=== PATIENT | female | born 1940 | race Caucasian/White ===

== ENCOUNTER 2017-02-21 08:14 | Inpatient (IN) | payer MEDICARE, BC ==
[~2017-02-21] VITALS: Ht 157.5 cm; Wt 43.6 kg
[~2017-02-21 08:14] MED LIST changes: -FURO20TA19 PO
--- NOTE | 2017-02-21 08:29 | ER Report ---
History and Physical Time Seen By MD: 08:21 Hx. of Stated Complaint: CP, SOB HPI/ROS CHIEF COMPLAINT: chest pressure, shortness of breath, abdominal pain HISTORY OF PRESENT ILLNESS: This is a 76 year old female. She started to have severe chest pressure this morning with associated shortness of breath. Has had cough from recent pneumonia, but this has been improving. Recently discharged on the from hospital. New onset atrial fibrillation, on increased does of Coreg and Amiodarone. Also on Xarelto for this. Had elevated troponin during hospitalization. Since home, has been doing well. [place] well last night but did have some increased shortness of breath and increased from her usual 3 liters up to 4 liters No fevers noted. Has abdominal pain, diffuse, but worse in the suprapubic area. No diarrhea. No vomiting. No problem with urination. Chest pressure is now gone and no longer feeling as short of breath. On her usual 3 liters of oxygen by nasal canula at this time. Allergies: Coded Allergies: codeine (Verified Allergy, Intermediate, SWOLLEN EYES, 02/12/17) morphine (Verified Allergy, Intermediate, SWOLLEN EYES, 02/12/17) Home Meds Active Scripts Rivaroxaban 15 Mg (XARELTO 15 MG) 15 Mg Tablet, 15 MG PO QDAY, #30 TAB Prov:CHRISTIAN LECHUGA DO 02/19/17 Amiodarone Hcl (PACERONE) 200 Mg Tablet, 200 MG PO BID, #14 TAB Prov:CHRISTIAN LECHUGA DO 02/19/17 Levalbuterol Tartrate (XOPENEX HFA) 15 Gm Hfa.aer.ad, 2 PUFF IH QID Y for SHORTNESS OF BREATH, #1 INHALER Prov:CHRISTIAN LECHUGA DO 02/19/17 Prednisone 10 Mg Tab (PREDNISONE 10 MG TAB) 10 Mg Tablet, 10 MG PO QDAY, #30 TAB Prov:CHRISTIAN LECHUGA DO 02/19/17 Carvedilol (CARVEDILOL) 6.25 Mg Tab, 3 TAB PO BID, #120 TAB Prov:CHRISTIAN LECHUGA DO 02/19/17 Bupropion Hcl (BUPROPION XL) 300 Mg Tab.er.24h, 300 MG PO QDAY, #30 TAB Prov:CHRISTIAN LECHUGA DO 02/19/17 Reported Medications Mirtazapine (MIRTAZAPINE) 7.5 Mg Tablet, 7.5 MG PO QHS 08/02/16 Discontinued Reported Medications Prednisone 10 Mg Tab (PREDNISONE 10 MG TAB) 10 Mg Tablet, 7.5 MG PO QDAY, TAB 02/12/17 Hydroxyzine Pamoate (HYDROXYZINE PAMOATE) 25 Mg Capsule, 25 MG PO PRN, CAPSULE 02/12/17 Albuterol Sulfate (VENTOLIN HFA) 18 Gm Inh, 1-2 PUFF INH 3-4XD, INH 01/03/17 Bupropion Hcl (WELLBUTRIN XL) 150 Mg Tab.er.24h, 450 MG PO QDAY, TAB 10/23/16 Losartan Potassium (LOSARTAN POTASSIUM) 50 Mg Tablet, 50 MG PO BID 10/23/16 Carvedilol (CARVEDILOL) 6.25 Mg Tab, 6.25 MG PO BID, TAB x 30 days 10/22/16 Vilazodone Hydrochloride (VIIBRYD) 20 Mg Tablet, 30 MG PO QDAY 08/02/16 Quetiapine Fumarate (SEROQUEL) 25 Mg Tablet, 12.5 MG PO HS 08/02/16 Discontinued Scripts Tramadol Hcl (TRAMADOL HCL) 50 Mg Tablet, 1 TAB PO PRN Y for PAIN, #30 TAB Prov:LAURITA MCDOWELL MD 01/13/17 Reviewed Nurses Notes: Yes Hx Smoking: Yes (10 TO 15 CIGARETTES PER DAY FOR 40 YEARS) Smoking Status: Current: Every Day Smoker Exposure to Second Hand Smoke?: No Hx Substance Use Disorder: No Hx Alcohol Use: No Constitutional Vital Sign - Last 24 Hours 02/21/17 02/21/17 02/21/17 02/21/17 08:15 08:15 08:30 09:00 Temp 98.7 Pulse 94 88 86 Resp 24 22 16 B/P (MAP) 172/85 158/80 (106) 166/84 (111) Pulse Ox 92 91 100 O2 Delivery Room Air O2 Flow Rate 3.0 02/21/17 02/21/17 02/21/17 09:30 10:00 10:30 Pulse 82 81 Resp 20 13 B/P (MAP) 164/77 (106) 170/87 (114) 160/81 (107) Pulse Ox 92 93 Physical Exam General Appearance: The patient is alert. No acute distress at this time. Eyes: Pupils are equal, round. No pallor, injection or icterus. ENT: Mucous membranes are moist. Normal oral mucosa. Posterior oropharynx is normal. Neck: Supple and non tender. Respiratory: Lungs diminished at the based with mild expiratory wheezing. No rales or rhonchi noted. Some increased accessory muscle use with breathing. Cardiovascular: Regular rate and rhythm. 2/3 systolic murmur. Normal capillary refill. 1+ edema bilateral ankles. Gastrointestinal: Abdomen is soft. Diffuse discomfort with palpation, worse in suprapubic area. Nondistended. No rebound or guarding. Normal active bowel sounds. No costovertebral angle tenderness with percussion. Neurological: Alert and oriented x3. Generalized weakness, but no focal neurologic deficits. Skin: Warm and dry. Musculoskeletal: Extremities are nontender. No tenderness in palpation of the cervical, thoracic and lumbar spine. DIFFERENTIAL DIAGNOSIS: After history and physical exam, differential diagnosis was considered for a female with chest pressure, shortness of breath and abdominal pain, likely multifactorial. Will look for causes of shortness of breath and chest pain including but not limited to myocardial ischemia, pulmonary embolus, chest wall pain, pleural inflammation and pulmonary infectious causes and for causes of abdominal pain including but not limited to gastroenteritis and urinary tract infection. Medical Decision Making Data Points Result Diagram: 02/21/17 0814 02/21/17 0902 Laboratory Hematology Test 02/21/17 08:14 02/21/17 08:56 02/21/17 09:02 02/21/17 11:13 Red Blood Count 3.20 M/uL (4.17-5.56) Mean Corpuscular Volume 96.5 fL (80.0-96.0) Mean Corpuscular Hemoglobin 31.2 pg (26.0-33.0) Mean Corpuscular Hemoglobin Concent 32.3 g/dL (32.0-36.0) Red Cell Distribution Width 14.1 % (11.5-14.5) Mean Platelet Volume 7.2 fL (7.2-11.1) Neutrophils (%) (Auto) 77.8 % (39.4-72.5) Lymphocytes (%) (Auto) 15.5 % (17.6-49.6) Monocytes (%) (Auto) 5.2 % (4.1-12.4) Eosinophils (%) (Auto) 0.7 % (0.4-6.7) Basophils (%) (Auto) 0.8 % (0.3-1.4) Nucleated RBC Relative Count (auto) 0.1 /100WBC Neutrophils # (Auto) 13.3 K/uL (2.0-7.4) Lymphocytes # (Auto) 2.7 K/uL (1.3-3.6) Monocytes # (Auto) 0.9 K/uL (0.3-1.0) Eosinophils # (Auto) 0.1 K/uL (0.0-0.5) Basophils # (Auto) 0.1 K/uL (0.0-0.1) Nucleated RBC Absolute Count (auto) 0.03 K/uL Peripheral Blood Smear Yes Y/N B-Type Natriuretic Peptide 1660 pg/ml (0-100) Sodium Level 141 mmol/L (137-145) Potassium Level 4.4 mmol/L (3.5-5.0) Chloride Level 99 mmol/L (98-107) Carbon Dioxide Level 35 mmol/L (22-31) Blood Urea Nitrogen 20 mg/dl (7-18) Creatinine 0.60 mg/dl (0.52-1.04) Glomerular Filtration Rate Calc > 60.0 Random Glucose 133 mg/dl (75-110) Lactate 1.0 mmol/L (0.7-2.1) Calcium Level 8.0 mg/dl (8.4-10.2) Total Bilirubin 0.4 mg/dl (0.2-1.3) Aspartate Amino Transf (AST/SGOT) 36 U/L (0-35) Alanine Aminotransferase (ALT/SGPT) 57 U/L (0-56) Alkaline Phosphatase 62 U/L (0-126) Troponin I 0.033 ng/ml C-Reactive Protein 1.2 mg/dl (<1.0) Total Protein 6.0 gm/dl (6.3-8.2) Albumin 3.1 g/dl (3.5-5.0) Amylase Level 82 U/L (0-110) Lipase 68 U/L (23-300) Urine Color Yellow Urine Clarity Clear Urine pH 5.0 pH (4.8-9.5) Urine Specific [place] 1.030 Urine Protein Negative mg/dL (NEGATIVE) Urine Glucose (UA) Negative mg/dL (NEGATIVE) Urine Ketones Negative mg/dL (NEGATIVE) Urine Blood Negative (NEGATIVE) Urine Nitrite Negative (NEGATIVE) Urine Bilirubin Negative (NEGATIVE) Urine Urobilinogen Negative mg/dL (0.2-1.9) Urine Leukocyte Esterase Negative (NEGATIVE) Urine RBC None /HPF (0-2/HPF) Urine WBC 2 /HPF (0-5/HPF) Urine Squamous Epithelial Cells Few /LPF (</=FEW) Urine Bacteria Negative /HPF (NONE-FEW) Urine Hyaline Casts Few /LPF (NONE-FEW) Urine Mucus Few /HPF (NONE-FEW) Chemistry Test 02/21/17 08:14 02/21/17 08:56 02/21/17 09:02 02/21/17 11:13 White Blood Count 17.2 k/uL (4.5-11.0) Red Blood Count 3.20 M/uL (4.17-5.56) Hemoglobin 10.0 g/dL (12.0-16.0) Hematocrit 30.8 % (34.0-47.0) Mean Corpuscular Volume 96.5 fL (80.0-96.0) Mean Corpuscular Hemoglobin 31.2 pg (26.0-33.0) Mean Corpuscular Hemoglobin Concent 32.3 g/dL (32.0-36.0) Red Cell Distribution Width 14.1 % (11.5-14.5) Platelet Count 560 K/uL (150-450) Mean Platelet Volume 7.2 fL (7.2-11.1) Neutrophils (%) (Auto) 77.8 % (39.4-72.5) Lymphocytes (%) (Auto) 15.5 % (17.6-49.6) Monocytes (%) (Auto) 5.2 % (4.1-12.4) Eosinophils (%) (Auto) 0.7 % (0.4-6.7) Basophils (%) (Auto) 0.8 % (0.3-1.4) Nucleated RBC Relative Count (auto) 0.1 /100WBC Neutrophils # (Auto) 13.3 K/uL (2.0-7.4) Lymphocytes # (Auto) 2.7 K/uL (1.3-3.6) Monocytes # (Auto) 0.9 K/uL (0.3-1.0) Eosinophils # (Auto) 0.1 K/uL (0.0-0.5) Basophils # (Auto) 0.1 K/uL (0.0-0.1) Nucleated RBC Absolute Count (auto) 0.03 K/uL Peripheral Blood Smear Yes Y/N B-Type Natriuretic Peptide 1660 pg/ml (0-100) Glomerular Filtration Rate Calc > 60.0 Lactate 1.0 mmol/L (0.7-2.1) Calcium Level 8.0 mg/dl (8.4-10.2) Total Bilirubin 0.4 mg/dl (0.2-1.3) Aspartate Amino Transf (AST/SGOT) 36 U/L (0-35) Alanine Aminotransferase (ALT/SGPT) 57 U/L (0-56) Alkaline Phosphatase 62 U/L (0-126) Troponin I 0.033 ng/ml C-Reactive Protein 1.2 mg/dl (<1.0) Total Protein 6.0 gm/dl (6.3-8.2) Albumin 3.1 g/dl (3.5-5.0) Amylase Level 82 U/L (0-110) Lipase 68 U/L (23-300) Urine Color Yellow Urine Clarity Clear Urine pH 5.0 pH (4.8-9.5) Urine Specific [place] 1.030 Urine Protein Negative mg/dL (NEGATIVE) Urine Glucose (UA) Negative mg/dL (NEGATIVE) Urine Ketones Negative mg/dL (NEGATIVE) Urine Blood Negative (NEGATIVE) Urine Nitrite Negative (NEGATIVE) Urine Bilirubin Negative (NEGATIVE) Urine Urobilinogen Negative mg/dL (0.2-1.9) Urine Leukocyte Esterase Negative (NEGATIVE) Urine RBC None /HPF (0-2/HPF) Urine WBC 2 /HPF (0-5/HPF) Urine Squamous Epithelial Cells Few /LPF (</=FEW) Urine Bacteria Negative /HPF (NONE-FEW) Urine Hyaline Casts Few /LPF (NONE-FEW) Urine Mucus Few /HPF (NONE-FEW) Urinalysis Test 02/21/17 11:13 Urine Color Yellow Urine Clarity Clear Urine pH 5.0 pH (4.8-9.5) Urine Specific [place] 1.030 Urine Protein Negative mg/dL (NEGATIVE) Urine Glucose (UA) Negative mg/dL (NEGATIVE) Urine Ketones Negative mg/dL (NEGATIVE) Urine Blood Negative (NEGATIVE) Urine Nitrite Negative (NEGATIVE) Urine Bilirubin Negative (NEGATIVE) Urine Urobilinogen Negative mg/dL (0.2-1.9) Urine Leukocyte Esterase Negative (NEGATIVE) Urine RBC None /HPF (0-2/HPF) Urine WBC 2 /HPF (0-5/HPF) Urine Squamous Epithelial Cells Few /LPF (</=FEW) Urine Bacteria Negative /HPF (NONE-FEW) Urine Hyaline Casts Few /LPF (NONE-FEW) Urine Mucus Few /HPF (NONE-FEW) EKG/Imaging EKG Interpretation 12 lead EKG: Rhythm: normal sinus rhythm, rate 92 QRS: Left bundle branch block ST segments: non-specific 12 lead EKG: at 11:38 Rhythm: Atrial fibrillation with rapid rate of 124 QRS: Left bundle branch block ST segments: non-specific Imaging Exam: ACUTE ABDOMEN SERIES 3 VIEW Indication: chest pain, short of breath, abdominal pain, RAD Comparison: Chest x-ray 02/14/2017 Findings: Single view of the chest shows prominent cardiac silhouette. Coarse interstitial changes are present throughout both lungs with bibasilar atelectasis versus possible infiltrate present. There are small bilateral pleural effusions noted. The abdomen shows a nonobstructive bowel gas pattern present. No abnormal masses or calcifications are identified. IMPRESSION: 1. Bibasilar atelectasis versus infiltrate with small pleural effusions superimposed upon chronic interstitial changes 2. Nonobstructive bowel gas pattern Report Dictated By: Jordan Olmedo at 02/21/2017 9:09 AM CTA CHEST WW/O CNTR (PULM ANG) HISTORY: chest pain, shortness of breath ADDITIONAL HISTORY: None. TECHNIQUE: CTA chest with intravenous contrast. Axial imaging acquired following administration of IV contrast timed for maximum opacification of the pulmonary arterial vasculature. Slab 3-D MIP reconstructed images were also created for further evaluation and interpretation. Reconstruction of the source data set includes multiplanar 2-D in the sagittal and coronal planes and 3-D reconstructed coronal slab MIP series. 3-D images were created by the technologist. Dose Lowering Technique One of the following dose optimization techniques was utilized in the performance of this exam: Automated exposure control; adjustment of the mA and/ or kV according to the patient's size; or use of an iterative reconstruction technique. Specific details can be referenced in the facility's radiology CT exam operational policy. CONTRAST: 75 mL Isovue-370 COMPARISON: August 02, 2016 FINDINGS: Lungs/pleura: Again noted is severe diffuse centrilobular emphysema. There has been development of moderate bilateral posterior layering pleural effusions and a moderate amount of airspace consolidation in the lower lobes. Mild secretions seen in the right main bronchus and right lower lobe bronchioles Heart/vessels: Negative. There are no filling defects seen in the pulmonary arteries worrisome for a pulmonary embolus.. There are mild to moderate vascular callus occasions in the thoracic aorta and branch vessels including the coronary arteries Mediastinum/lymph nodes: Negative. Visualized upper abdomen: Please see today's CT of abdomen pelvis dictation Bones/soft tissues: No aggressive appearing bone lesion seen. Diffuse anasarca. Additional findings: None IMPRESSION: No evidence of pulmonary emboli. Severe diffuse centrilobular emphysema Moderate bilateral posterior layering pleural effusions with a moderate amount of airspace consolidation in the lower lobes consistent with infiltrates and/or atelectasis. Mild secretions seen in the right main bronchus and right lower lobe bronchioles Report Dictated By: Ninfa Moya MD at 02/21/2017 11:26 AM ABDOMEN/PELVIS WITH CONTRAST HISTORY: abdominal pain TECHNIQUE: Following administration of IV contrast contiguous axial images acquired through the abdomen/pelvis. Coronal and sagittal reformatting also performed. Dose Lowering Technique One of the following dose optimization techniques was utilized in the performance of this exam: Automated exposure control; adjustment of the mA and/ or kV according to the patient's size; or use of an iterative reconstruction technique. Specific details can be referenced in the facility's radiology CT exam operational policy. CONTRAST: 75 mL Isovue-370 COMPARISON: August 02, 2016 FINDINGS: Visualized lung bases: Severe centrilobular emphysema again noted. There are moderate bilateral posterior layering pleural effusions and moderate airspace consolidation in the visualized lower lobes . Hepatobiliary: There are postsurgical changes from a cholecystectomy with intra and extrahepatic biliary ductal dilatation although appears similar to the prior study. Tiny scattered peripheral hypodensities are again seen in the liver that appear similar to the prior study Spleen: Negative. Adrenals: Negative. Pancreas: Negative. Kidneys ureters or bladder: Cortical hypodensities are seen in both kidneys. The largest appear to represent cysts. The smaller ones are too small to characterize by by CT although statistically represent cysts no evidence of hydronephrosis or hydroureter . There is a small amount of air in the urinary bladder. May be related to recent catheterization although clinical correlation needed Genitalia: Hysterectomy GI: Diverticulosis of the left-sided colon although no CT evidence of acute diverticulitis. Vessels/spaces/nodes: There are moderate vascular calcifications present. There are pelvic varicosities on the left Bones/soft tissues: There is diffuse anasarca. Degenerative listhesis of L4 with respect L5 similar to the prior examination and to lesser extent L2 with respect L3. Additional findings: None pertinent. IMPRESSION: Severe centrilobular emphysema Moderate bilateral posterior layering pleural effusions with moderate airspace consolidation in the visualized lower lobes consistent with infiltrates and/or atelectasis Postsurgical changes from a cholecystectomy with intra and Ductal dilatation similar to the prior study Tiny scattered peripheral hypodensities in the liver appears some are to the prior study Small amount of air seen in the urinary bladder which may be related to catheterization although clinical correlation needed Diverticulosis left-sided colon although no CT evidence of acute diverticulitis Diffuse anasarca Report Dictated By: Ninfa Moya MD at 02/21/2017 11:06 AM ED Course/Re-evaluation Clinical Indication for ER IV: IV Access ED Course Initial evaluation showed that the patient would become very hypoxic even with light activity and despite being up to 4 or 5 liters of oxygen. She is very weak even with transfers such as from bed to commode. Labs show elevated white blood cell count with shift, but lactate is normal and no sign of infection unless in the atelectatic bases on imaging. Now with effusions on chest x-ray and on CT scan. No pulmonary embolism notes. Initial EKG is sinus with a good rate. Urinalysis does not show infection. BNP is elevated at 1666. Troponin is 0.033, which appears likely to be coming down from previous elevations, but could represent demand ischemia. Later, she is unchanged except for that she has now gone into atrial fibrillation with a rapid rate. She has not had any of her regular morning medications. I discussed the case with Dr. Love, who accepted the patient for admission to the hospital for heart failure. I also discussed the case with Dr. Rivera, who is here at the visiting cardiology offices and was supposed to see her this morning. He agreed with the plan for hospitalization and diuresis. Decision to Disposition Date: Feb 21, 2017 Decision to Disposition Time: 12:07 Depart Departure Latest Vital Signs Vital Signs Date Time Temp Pulse Resp B/P (MAP) Pulse Ox O2 Delivery O2 Flow Rate FiO2 02/21/17 10:30 160/81 (107) 02/21/17 10:00 81 13 93 02/21/17 08:15 3.0 02/21/17 08:15 98.7 Room Air Core Temperature (Celsius): 37.2 Impression: Primary Impression: Congestive heart failure Condition: Condition Unchanged Disposition: Admitted from ER Referrals: FEMI CUMMINGS DO (PCP) Problem Qualifiers Primary Impression: Congestive heart failure Congestive heart failure type: unspecified congestive heart failure type Congestive heart failure chronicity: acute on chronic Qualified Codes: I50.9 - Heart failure, unspecified JANNY MARSHALL MD Feb 21, 2017 08:29
[2017-02-21 08:42] LABS: PLATELET COUNT, AUTOMATED 560 K/uL (150-450)
--- NOTE | 2017-02-21 08:50 | EKG ---
FACILITY: [facility] PATIENT NAME: TAYLOR WASHINGTON : [id number] MR: [id number] V: [id number] EXAM DATE: ORDERING PHYSICIAN: JANNY MARSHALL TECHNOLOGIST: Test Reason : Blood Pressure : / mmHG Vent. Rate : 092 BPM Atrial Rate : 092 BPM P-R Int : 152 ms QRS Dur : 126 ms QT Int : 382 ms P-R-T Axes : 074 -03 113 degrees QTc Int : 472 ms Sinus rhythm Left bundle branch block Diffuse ST-T changes consistent with LBBB Abnormal ECG Confirmed by FALLON BAXTER ([id number]) on 02/21/2017 3:13:33 PM Referred By: Confirmed By:FALLON BAXTER
--- NOTE | 2017-02-21 09:18 | RADIOLOGY IMAGING REPORT ---
FACILITY: [facility] PATIENT NAME: Chey Calderón : 1940 MR: [id number] V: [id number] EXAM DATE: ORDERING PHYSICIAN: JANNY MARSHALL TECHNOLOGIST: Location: [facility] Patient: Chey Calderón : 1940 Visit/Account:[id number] Date of Sevice: 02/21/2017 Exam: ACUTE ABDOMEN SERIES 3 VIEW Indication: chest pain, short of breath, abdominal pain, RAD Comparison: Chest x-ray 02/14/2017 Findings: Single view of the chest shows prominent cardiac silhouette. Coarse interstitial changes a re present throughout both lungs with bibasilar atelectasis versus possible infiltrate present. Ther e are small bilateral pleural effusions noted. The abdomen shows a nonobstructive bowel gas pattern present. No abnormal masses or calcifications a re identified. IMPRESSION: 1. Bibasilar atelectasis versus infiltrate with small pleural effusions superimposed upon chronic in terstitial changes 2. Nonobstructive bowel gas pattern Report Dictated By: Jordan Olmedo at 02/21/2017 9:09 AM Report E-Signed By: Jordan Olmedo at 02/21/2017 9:12 AM WSN:ASIF
[2017-02-21] MEDS ORDERED: NS 0.9% 50 ML VIAL 100 ML ONE (10:05)
[2017-02-21] MEDS ORDERED: IOPAMIDOL 76% 75 ML INFUS BTL 75 ML ONE (10:05)
--- NOTE | 2017-02-21 11:30 | RADIOLOGY IMAGING REPORT ---
FACILITY: [facility] PATIENT NAME: Chey Calderón : 1940 MR: [id number] V: [id number] EXAM DATE: ORDERING PHYSICIAN: JANNY MARSHALL TECHNOLOGIST: Location: [facility] [place], [place] Patient: Chey Calderón : 1940 Visit/Account:[id number] Date of Sevice: 02/21/2017 ABDOMEN/PELVIS WITH CONTRAST HISTORY: abdominal pain TECHNIQUE: Following administration of IV contrast contiguous axial images acquired through the abdom en/pelvis. Coronal and sagittal reformatting also performed. Dose Lowering Technique One of the following dose optimization techniques was utilized in the performance of this exam: Autom ated exposure control; adjustment of the mA and/or kV according to the patient's size; or use of an i terative reconstruction technique. Specific details can be referenced in the facility's radiology C T exam operational policy. CONTRAST: 75 mL Isovue-370 COMPARISON: August 02, 2016 FINDINGS: Visualized lung bases: Severe centrilobular emphysema again noted. There are moderate bilateral pos terior layering pleural effusions and moderate airspace consolidation in the visualized lower lobes . Hepatobiliary: There are postsurgical changes from a cholecystectomy with intra and extrahepatic bambi iary ductal dilatation although appears similar to the prior study. Tiny scattered peripheral hypode nsities are again seen in the liver that appear similar to the prior study Spleen: Negative. Adrenals: Negative. Pancreas: Negative. Kidneys ureters or bladder: Cortical hypodensities are seen in both kidneys. The largest appear to r epresent cysts. The smaller ones are too small to characterize by by CT although statistically repre sent cysts no evidence of hydronephrosis or hydroureter . There is a small amount of air in the uri nary bladder. May be related to recent catheterization although clinical correlation needed Genitalia: Hysterectomy GI: Diverticulosis of the left-sided colon although no CT evidence of acute diverticulitis. Vessels/spaces/nodes: There are moderate vascular calcifications present. There are pelvic varicosi ties on the left Bones/soft tissues: There is diffuse anasarca. Degenerative listhesis of L4 with respect L5 similar to the prior examination and to lesser extent L2 with respect L3. Additional findings: None pertinent. IMPRESSION: Severe centrilobular emphysema Moderate bilateral posterior layering pleural effusions with moderate airspace consolidation in the v isualized lower lobes consistent with infiltrates and/or atelectasis Postsurgical changes from a cholecystectomy with intra and Ductal dilatation similar to the prior study Tiny scattered peripheral hypodensities in the liver appears some are to the prior study Small amount of air seen in the urinary bladder which may be related to catheterization although clin ical correlation needed Diverticulosis left-sided colon although no CT evidence of acute diverticulitis Diffuse anasarca Report Dictated By: Ninfa Moya MD at 02/21/2017 11:06 AM Report E-Signed By: Ninfa Moya MD at 02/21/2017 11:26 AM HEMAN:ELVIN
--- NOTE | 2017-02-21 11:38 | RADIOLOGY IMAGING REPORT ---
FACILITY: [facility] [place] PATIENT NAME: Chey Calderón : 1940 MR: [id number] V: [id number] EXAM DATE: ORDERING PHYSICIAN: JANNY MARSHALL TECHNOLOGIST: Location: [facility] [place] Patient: Chey Calderón : 1940 Visit/Account:[id number] Date of Sevice: 02/21/2017 CTA CHEST WW/O CNTR (PULM ANG) HISTORY: chest pain, shortness of breath ADDITIONAL HISTORY: None. TECHNIQUE: CTA chest with intravenous contrast. Axial imaging acquired following administration of IV contrast timed for maximum opacification of the pulmonary arterial vasculature. Slab 3-D MIP ariela nstructed images were also created for further evaluation and interpretation. Reconstruction of the s [facility] data set includes multiplanar 2-D in the sagittal and coronal planes and 3-D reconstructed brianna nal slab MIP series. 3-D images were created by the technologist. Dose Lowering Technique One of the following dose optimization techniques was utilized in the performance of this exam: Autom ated exposure control; adjustment of the mA and/or kV according to the patient's size; or use of an i terative reconstruction technique. Specific details can be referenced in the facility's radiology C T exam operational policy. CONTRAST: 75 mL Isovue-370 COMPARISON: August 02, 2016 FINDINGS: Lungs/pleura: Again noted is severe diffuse centrilobular emphysema. There has been development of moderate bilateral posterior layering pleural effusions and a moderate amount of airspace consolidati on in the lower lobes. Mild secretions seen in the right main bronchus and right lower lobe bronchio les Heart/vessels: Negative. There are no filling defects seen in the pulmonary arteries worrisome for a pulmonary embolus.. There are mild to moderate vascular callus occasions in the thoracic aorta and branch vessels including the coronary arteries Mediastinum/lymph nodes: Negative. Visualized upper abdomen: Please see today's CT of abdomen pelvis dictation Bones/soft tissues: No aggressive appearing bone lesion seen. Diffuse anasarca. Additional findings: None IMPRESSION: No evidence of pulmonary emboli. Severe diffuse centrilobular emphysema Moderate bilateral posterior layering pleural effusions with a moderate amount of airspace consolidat ion in the lower lobes consistent with infiltrates and/or atelectasis. Mild secretions seen in the right main bronchus and right lower lobe bronchioles Report Dictated By: Ninfa Moya MD at 02/21/2017 11:26 AM Report E-Signed By: Ninfa Moya MD at 02/21/2017 11:33 AM WSN:[email or web address]
[2017-02-21] MEDS ORDERED: RIVAROXABAN 10 MG TAB PO ONE (12:00)
[2017-02-21] MEDS ORDERED: buPROPion XL 150 MG TABCR PO ONE (12:00)
[2017-02-21] MEDS ORDERED: CARVEDILOL 6.25 MG TAB PO SCH (12:00)
[2017-02-21] MEDS ORDERED: AMIODARONE 200 MG TAB PO ONE (12:00)
[2017-02-21] MEDS ORDERED: METOPROLOL TART 5 MG/5 ML VIAL IVP ONE (12:10)
[2017-02-21] MEDS ORDERED: methylPREDNIS SUCC 125 MG/2ML IVP ONE (12:10)
[2017-02-21] MEDS ORDERED: FUROSEMIDE 40 MG/4 ML VIAL IVP ONE (12:10)
[2017-02-21 13:11] VITALS: BP 136/98
[2017-02-21] MEDS ORDERED: ACETAMINOPHEN 325 MG TAB PO PRN (14:10)
[2017-02-21] MEDS ORDERED: FLUSH 10 ML SYR IVP PRN (14:10)
--- NOTE | 2017-02-21 14:17 | History & Physical ---
History of Present Illness Chief Complaint Short of breath History of Present Illness 76yo female who was recently admitted with pneumonia, a-fib, CHF. She returned home two days ago. She reports doing well for the first 24-36 hours, but early this AM she awoke with dyspnea and chest fullness/tightness. She did not appreciate any overt palpitations or heart racing. She did not report chest pain. No fevers or chills. Some cough with scant sputum. She was evaluated in the ER and found to have evidence of CHF with bilateral pleural effusions, peripheral edema. Her BNP was elevated at 1660. Her troponin was 0.033. While in the ER, she went into atrial fibrillation with RVR. She was recommended for admission. History Problems: (1) Anxiety and depression Status: Chronic (2) Cholecystitis Status: Chronic (3) Endocarditis Status: Resolved (4) Tobacco dependence Status: Chronic (5) HTN (hypertension) Status: Chronic (6) COPD (chronic obstructive pulmonary disease) Status: Chronic (7) Pneumonia Status: Resolved (8) Non-ST elevated myocardial infarction Status: Resolved (9) Congestive heart failure Status: Chronic (10) Atrial fibrillation with RVR Status: Chronic Home Meds Active Scripts Rivaroxaban 15 Mg (XARELTO 15 MG) 15 Mg Tablet, 15 MG PO QDAY, #30 TAB Prov:CHRISTIAN LECHUGA DO 02/19/17 Amiodarone Hcl (PACERONE) 200 Mg Tablet, 200 MG PO BID, #14 TAB Prov:CHRISTIAN LECHUGA DO 02/19/17 Levalbuterol Tartrate (XOPENEX HFA) 15 Gm Hfa.aer.ad, 2 PUFF IH QID Y for SHORTNESS OF BREATH, #1 INHALER Prov:CHRISTIAN LECHUGA DO 02/19/17 Prednisone 10 Mg Tab (PREDNISONE 10 MG TAB) 10 Mg Tablet, 10 MG PO QDAY, #30 TAB Prov:CHRISTIAN LECHUGA DO 02/19/17 Carvedilol (CARVEDILOL) 6.25 Mg Tab, 3 TAB PO BID, #120 TAB Prov:CHRISTIAN LECHUGA DO 02/19/17 Bupropion Hcl (BUPROPION XL) 300 Mg Tab.er.24h, 300 MG PO QDAY, #30 TAB Prov:CHRISTIAN LECHUGA DO 02/19/17 Reported Medications Mirtazapine (MIRTAZAPINE) 7.5 Mg Tablet, 7.5 MG PO QHS 08/02/16 Discontinued Reported Medications Prednisone 10 Mg Tab (PREDNISONE 10 MG TAB) 10 Mg Tablet, 7.5 MG PO QDAY, TAB 02/12/17 Hydroxyzine Pamoate (HYDROXYZINE PAMOATE) 25 Mg Capsule, 25 MG PO PRN, CAPSULE 02/12/17 Albuterol Sulfate (VENTOLIN HFA) 18 Gm Inh, 1-2 PUFF INH 3-4XD, INH 01/03/17 Bupropion Hcl (WELLBUTRIN XL) 150 Mg Tab.er.24h, 450 MG PO QDAY, TAB 10/23/16 Losartan Potassium (LOSARTAN POTASSIUM) 50 Mg Tablet, 50 MG PO BID 10/23/16 Carvedilol (CARVEDILOL) 6.25 Mg Tab, 6.25 MG PO BID, TAB x 30 days 10/22/16 Vilazodone Hydrochloride (VIIBRYD) 20 Mg Tablet, 30 MG PO QDAY 08/02/16 Quetiapine Fumarate (SEROQUEL) 25 Mg Tablet, 12.5 MG PO HS 08/02/16 Discontinued Scripts Tramadol Hcl (TRAMADOL HCL) 50 Mg Tablet, 1 TAB PO PRN Y for PAIN, #30 TAB Prov:LAURITA MCDOWELL MD 01/13/17 Allergies: Coded Allergies: codeine (Verified Allergy, Intermediate, SWOLLEN EYES, 02/12/17) morphine (Verified Allergy, Intermediate, SWOLLEN EYES, 02/12/17) Hx Smoking: Yes (10 TO 15 CIGARETTES PER DAY FOR 40 YEARS) Smoking Status: Current: Every Day Smoker Exposure to Second Hand Smoke?: No Caffeine Intake: Coffee Caffeine/Cups Per Day: 3 TO 4 CUPS COFFEE PER DAY Hx Alcohol Use: No Hx Substance Use Disorder: No Social Drug Use: Never Review of Systems Constitutional: Weight Gain, No Fever, No Chills Neurological: Weakness Eyes: No Vision Change, No Loss of Vision ENT: Hearing Loss (chronic) Cardiovascular: No Chest Pain, No Palpitations Respiratory: Shortness of Breath, Cough, Wheezing Gastrointestinal: No Nausea, No Vomiting, No Diarrhea, No Hematemesis, No Hematochezia, No Melena Genitourinary: No Dysuria, No Hematuria Musculoskeletal: No Pain, No Sprain, No Impaired Mobility Psychiatric: Depression, Anxiety Exam Vital Signs Vital Signs Date Time Temp Pulse Resp B/P (MAP) Pulse Ox O2 Delivery O2 Flow Rate FiO2 02/21/17 13:37 96 Oxy Mask 8.0 02/21/17 13:29 128 24 02/21/17 13:11 97.8 136/98 (111) General Appearance: Alert, Awake Neuro: No Gross deficits Eyes: PERRLA ENT: Oropharynx Clear Neck: No Masses Cardiovascular: Other (Irregular tachycardic with distant tones and systolic murmur) Respiratory: Other (diminished breath sounds throughout with soft expiratory wheeze few rales at bases) Chest: No Tenderness GI: Abd Soft and Non-Tender Extremities: Warm, Perfused, Edema (1-2 + both LE) Integumentary: Generalized Fragile Skin Psych: Alert & Oriented X3 Medical Decision Making Data Points Result Diagram: 02/21/17 0814 02/21/17 0902 Item Value Date Time Lipase 68 U/L 02/21/17 0902 Amylase Level 82 U/L 02/21/17 0902 Albumin 3.1 g/dl L 02/21/17 0902 Total Protein 6.0 gm/dl L 02/21/17 0902 B-Type Natriuretic Peptide 1660 pg/ml H 02/21/17 0856 C-Reactive Protein 1.2 mg/dl H 02/21/17 0902 Troponin I 0.033 ng/ml 02/21/17 0902 Alkaline Phosphatase 62 U/L 02/21/17 0902 Alanine Aminotransferase (ALT/SGPT) 57 U/L H 02/21/17 0902 Aspartate Amino Transf (AST/SGOT) 36 U/L H 02/21/17 0902 Total Bilirubin 0.4 mg/dl 02/21/17 0902 Calcium Level 8.0 mg/dl L 02/21/17 0902 Lactate 1.0 mmol/L 02/21/17 0902 Urine Color Yellow 02/21/17 1113 Urine Clarity Clear 02/21/17 1113 Urine pH 5.0 pH 02/21/17 1113 Urine Specific [place] 1.030 02/21/17 1113 Urine Protein Negative mg/dL 02/21/17 1113 Urine Glucose (UA) Negative mg/dL 02/21/17 1113 Urine Ketones Negative mg/dL 02/21/17 1113 Urine Blood Negative 02/21/17 1113 Urine Nitrite Negative 02/21/17 1113 Urine Bilirubin Negative 02/21/17 1113 Urine Urobilinogen Negative mg/dL 02/21/17 1113 Urine Leukocyte Esterase Negative 02/21/17 1113 Urine RBC None /HPF 02/21/17 1113 Urine WBC 2 /HPF 02/21/17 1113 Urine Squamous Epithelial Cells Few /LPF 02/21/17 1113 Urine Bacteria Negative /HPF 02/21/17 1113 Urine Hyaline Casts Few /LPF 02/21/17 1113 Urine Mucus Few /HPF 02/21/17 1113 EKG / Imaging Imaging PATIENT NAME: Chey Calderón : 1940 MR: [id number] V: [id number] EXAM DATE: ORDERING PHYSICIAN: JANNY MARSHALL TECHNOLOGIST: [place] [facility] [place] Chey Calderón : 1940 Visit/Account:[id number] Date of Sevice: 02/21/2017 CTA CHEST WW/O CNTR (PULM ANG) HISTORY: chest pain, shortness of breath ADDITIONAL HISTORY: None. TECHNIQUE: CTA chest with intravenous contrast. Axial imaging acquired following administration of IV contrast timed for maximum opacification of the pulmonary arterial vasculature. Slab 3-D MIP reconstructed images were also created for further evaluation and interpretation. Reconstruction of the source data set includes multiplanar 2-D in the sagittal and coronal planes and 3-D reconstructed coronal slab MIP series. 3-D images were created by the technologist. Dose Lowering Technique One of the following dose optimization techniques was utilized in the performance of this exam: Automated exposure control; adjustment of the mA and/ or kV according to the patient's size; or use of an iterative reconstruction technique. Specific details can be referenced in the facility's radiology CT exam operational policy. CONTRAST: 75 mL Isovue-370 COMPARISON: August 02, 2016 FINDINGS: Lungs/pleura: Again noted is severe diffuse centrilobular emphysema. There has been development of moderate bilateral posterior layering pleural effusions and a moderate amount of airspace consolidation in the lower lobes. Mild secretions seen in the right main bronchus and right lower lobe bronchioles Heart/vessels: Negative. There are no filling defects seen in the pulmonary arteries worrisome for a pulmonary embolus.. There are mild to moderate vascular callus occasions in the thoracic aorta and branch vessels including the coronary arteries Mediastinum/lymph nodes: Negative. Visualized upper abdomen: Please see today's CT of abdomen pelvis dictation Bones/soft tissues: No aggressive appearing bone lesion seen. Diffuse anasarca. Additional findings: None IMPRESSION: No evidence of pulmonary emboli. Severe diffuse centrilobular emphysema Moderate bilateral posterior layering pleural effusions with a moderate amount of airspace consolidation in the lower lobes consistent with infiltrates and/or atelectasis. Mild secretions seen in the right main bronchus and right lower lobe bronchioles Report Dictated By: Ninfa Moya MD at 02/21/2017 11:26 AM Report E-Signed By: Ninfa Moya MD at 02/21/2017 11:33 AM WSN:AMICIVN PATIENT NAME: Chey Calderón : 1940 MR: [id number] V: [id number] EXAM DATE: ORDERING PHYSICIAN: JANNY MARSHALL TECHNOLOGIST: [place] [facility] [place] Chey Calderón : 1940 Visit/Account:[id number] Date of Sevice: 02/21/2017 ABDOMEN/PELVIS WITH CONTRAST HISTORY: abdominal pain TECHNIQUE: Following administration of IV contrast contiguous axial images acquired through the abdomen/pelvis. Coronal and sagittal reformatting also performed. Dose Lowering Technique One of the following dose optimization techniques was utilized in the performance of this exam: Automated exposure control; adjustment of the mA and/ or kV according to the patient's size; or use of an iterative reconstruction technique. Specific details can be referenced in the facility's radiology CT exam operational policy. CONTRAST: 75 mL Isovue-370 COMPARISON: August 02, 2016 FINDINGS: Visualized lung bases: Severe centrilobular emphysema again noted. There are moderate bilateral posterior layering pleural effusions and moderate airspace consolidation in the visualized lower lobes . Hepatobiliary: There are postsurgical changes from a cholecystectomy with intra and extrahepatic biliary ductal dilatation although appears similar to the prior study. Tiny scattered peripheral hypodensities are again seen in the liver that appear similar to the prior study Spleen: Negative. Adrenals: Negative. Pancreas: Negative. Kidneys ureters or bladder: Cortical hypodensities are seen in both kidneys. The largest appear to represent cysts. The smaller ones are too small to characterize by by CT although statistically represent cysts no evidence of hydronephrosis or hydroureter . There is a small amount of air in the urinary bladder. May be related to recent catheterization although clinical correlation needed Genitalia: Hysterectomy GI: Diverticulosis of the left-sided colon although no CT evidence of acute diverticulitis. Vessels/spaces/nodes: There are moderate vascular calcifications present. There are pelvic varicosities on the left Bones/soft tissues: There is diffuse anasarca. Degenerative listhesis of L4 with respect L5 similar to the prior examination and to lesser extent L2 with respect L3. Additional findings: None pertinent. IMPRESSION: Severe centrilobular emphysema Moderate bilateral posterior layering pleural effusions with moderate airspace consolidation in the visualized lower lobes consistent with infiltrates and/or atelectasis Postsurgical changes from a cholecystectomy with intra and Ductal dilatation similar to the prior study Tiny scattered peripheral hypodensities in the liver appears some are to the prior study Small amount of air seen in the urinary bladder which may be related to catheterization although clinical correlation needed Diverticulosis left-sided colon although no CT evidence of acute diverticulitis Diffuse anasarca Report Dictated By: Ninfa Moya MD at 02/21/2017 11:06 AM Report E-Signed By: Ninfa Moya MD at 02/21/2017 11:26 AM WSN:ELVIN Assessment and Plan Problems: (1) Congestive heart failure Status: Chronic Assessment & Plan: It appears she has acute on chronic systolic heart failure. I suspect she has probably been having recurring episodes of atrial fibrillation and does not tolerate it very well. Will admit to telemetry, try to get rate control. Hopefully, she will convert back to sinus rhythm. Check serial troponin. Will continue her carvedilol, Xarelto, amiodarone. Will try to achieve some diuresis as well. (2) Atrial fibrillation with RVR Status: Chronic Assessment & Plan: It appears she has probably not been tolerating the a-fib very well. Will work on rate control. Continue her meds as noted above. (3) COPD (chronic obstructive pulmonary disease) Status: Chronic Assessment & Plan: Will continue her Xopenex if needed. Continue oxygen supplementation. She is also on low dose prednisone. She did receive a dose of Solu-Medrol 125mg in the ER. Venous Thromboembolism Antithrombotics Is Pt On Any Antithrombotics?: Yes Exam Sepsis Risk: No Definite Risk Problem Qualifiers (1) Congestive heart failure: Congestive heart failure type: unspecified congestive heart failure type Congestive heart failure chronicity: acute on chronic Qualified Codes: I50.9 - Heart failure, unspecified FALLON BAXTER MD Feb 21, 2017 14:17
[2017-02-21] MEDS: RIVAROXABAN 10 MG TAB PO SCH (14:53)
[2017-02-21 16:26] VITALS: BP 121/112
[2017-02-21 18:53] VITALS: BP 110/88
[2017-02-21 20:04] VITALS: BP 113/47
[2017-02-21] MEDS: MIRTAZAPINE 15 MG TAB PO SCH (20:38)
[2017-02-21] MEDS: AMIODARONE 200 MG TAB PO SCH (20:38)
[2017-02-21] MEDS: CARVEDILOL 6.25 MG TAB PO SCH (20:39)
[2017-02-21 23:40] VITALS: BP 114/54
[2017-02-22] VITALS (7 sets, daily range): BP systolic 130–152; BP diastolic 61–89; Ht 157.5 cm; Wt 43.6 kg
[2017-02-22 06:15] LABS: PLATELET COUNT, AUTOMATED 505 K/uL (150-450)
[2017-02-22] MEDS: buPROPion XL 150 MG TABCR PO SCH (08:52)
[2017-02-22] MEDS: predniSONE 10 MG TAB PO SCH (08:52)
[2017-02-22] MEDS: CARVEDILOL 6.25 MG TAB PO SCH ×2 (08:52→20:49)
[2017-02-22] MEDS: AMIODARONE 200 MG TAB PO SCH ×2 (08:53→20:49)
[2017-02-22] MEDS: RIVAROXABAN 10 MG TAB PO SCH (08:53)
--- NOTE | 2017-02-22 09:54 | Hospitalist Progress Note ---
Subjective Progress Notes Subjective This patient was readmitted for acute heart failure. She had no acute events overnight. Patient Complains of: Cardiovascular: No: Chest Pain Respiratory: No: Shortness of Breath Physical Exam Vital Signs Date Time Temp Pulse Resp B/P (MAP) Pulse Ox O2 Delivery O2 Flow Rate FiO2 02/22/17 07:45 98.9 90 18 152/89 (110) 90 Nasal Cannula 3.5 Cardiovascular: Regular Rate and Rhythm, No JVD Respiratory: Clear to Auscultation Extremities: No Edema Integumentary: No Cyanosis Result Diagram: 02/22/1753702/22/17537 Assessment and Plan Problems: (1) Congestive heart failure Status: Chronic Assessment & Plan: She presented with increased shortness of breath. We treated her with a dose of IV Lasix, and she has diuresed some. An echocardiogram from her last admission showed an ejection fraction of 40%. She is on chronic treatment with carvedilol. (2) Atrial fibrillation with RVR Status: Chronic Assessment & Plan: She is on amiodarone and Xarelto. (3) COPD (chronic obstructive pulmonary disease) Status: Chronic Assessment & Plan: She is on chronic treatment with Xopenex and prednisone. Exam Sepsis Risk: No Definite Risk Problem Qualifiers (1) Congestive heart failure: Congestive heart failure type: unspecified congestive heart failure type Congestive heart failure chronicity: acute on chronic Qualified Codes: I50.9 - Heart failure, unspecified CHRISTIAN LECHUGA DO Feb 22, 2017 09:54
--- NOTE | 2017-02-22 12:52 | Medical Nutrition Therapy ---
Nutrition Anthropometrics Height (Inches): 62.00 Height (Calculated Centimeters: 157.682487 Weight (Pounds): 100 Weight (Calculated Kilograms): 45.473 BMI Calculated: 18.29 Abdoulaye Nutrition Score: Adequate Abdoulaye Nutrition Risk Score: 17 Dietary Referral Nutrition Risk Factors: Nutrition Risk Comment: Physical Findings Physical Appearance: Underweight BMI<19 Skin Appearance Skin Appearance: Edema Edema Location Modifier: Both Edema Location: Lower Extremity Type of Edema: Degree of Edema: 1+ Gastrointestinal Symptoms GI Symtoms: Diarrhea Tube Present: Bowel Sounds: Recent Bowel Pattern: Diarrhea Stool Characteristics: Brown, Liquid Nutrition/Food History Decreased Appetite Fair Nutritional Diagnosis Nutritional Risk Acuity 2: CHF w/Complication, %IBW 75-80% Nutritional Risk Acuity 3: Fair Appetite Past Medical History: COPD, endocarditis, HTN, depression, CHF Nutritional Acuity: 2-Moderate Nutrition Diagnosis: Under-weight Nutrition Etiology: Inadeq. Food/Socorro Intake, Loss of Appetite Nutrition Problem/Etiology/Sym: Underweight related to inadequate oral intake and decreased appetite AEB BMI of 18.29 and reports of oral intake of approximately 50%. Energy Requirement: 1725 (Bonner-St Jeor: (Actual BW X 1.6) X IF 1.2) Protein Requirement: 55 (Actual BW Kg X 1.2) Fluid Requirement: 1725 Diet Type: No Added Salt (SHANEL) Nutrition Intervention: Cont diet as ordered Nutrition Monitoring & Eval Nutrition Goals: Eat 75-100% Meal RD Patient Assessment Time: [address] Assessment Type: RD Assessment Patient Nutrition Acuity: 2-Moderate Follow Up Date: Feb 25, 2017 Nutritional Comment: Pt admitted for CHF with bilateral pleural effusions, peripheral edema. Pt underwt with BMI of 18.29. Low H/H, Alb, 2.5, BNP 931, High C02. Receiving SHANEL diet and consumed 50% of first meal in facility. Follow intake, labs, encourage intake. RICARDO LONDON Feb 22, 2017 12:52
[2017-02-22] MEDS ORDERED: INFLUENZA VIRUS VAC 0.5 ML SYR IM ONLY ONE (14:10)
--- NOTE | 2017-02-22 16:24 | EKG ---
FACILITY: [facility] [place] PATIENT NAME: TAYLOR WASHINGTON : [id number] MR: [id number] V: [id number] EXAM DATE: ORDERING PHYSICIAN: JANNY MARSHALL TECHNOLOGIST: LUCRETIA Cobb Reason : REPEAT Blood Pressure : / mmHG Vent. Rate : 124 BPM Atrial Rate : 125 BPM P-R Int : 000 ms QRS Dur : 122 ms QT Int : 292 ms P-R-T Axes : 000 057 141 degrees QTc Int : 419 ms Atrial fibrillation with rapid ventricular response with premature ventricular or aberrantly conducte d complexes Left bundle branch block Abnormal ECG When compared with ECG of 21-FEB-2017 08:17, Atrial fibrillation has replaced Sinus rhythm Questionable change in QRS axis ST now depressed in Inferior leads Nonspecific T wave abnormality now evident in Inferior leads Confirmed by CHRISTIAN LECHUGA ([id number]) on 02/22/2017 7:23:21 PM Referred By: JOANNA Confirmed By:CHRISTIAN LECHUGA
[2017-02-22] MEDS: MIRTAZAPINE 15 MG TAB PO SCH (20:49)
[2017-02-23 03:03] VITALS: BP 146/74
[2017-02-23 08:03] VITALS: BP 120/77
[2017-02-23] MEDS: CARVEDILOL 6.25 MG TAB PO SCH (08:39)
[2017-02-23] MEDS: buPROPion XL 150 MG TABCR PO SCH (08:40)
[2017-02-23] MEDS: AMIODARONE 200 MG TAB PO SCH ×2 (08:40→20:46)
[2017-02-23] MEDS: predniSONE 10 MG TAB PO SCH (08:40)
[2017-02-23] MEDS: RIVAROXABAN 10 MG TAB PO SCH (08:40)
[2017-02-23] MEDS ORDERED: FUROSEMIDE 40 MG/4 ML VIAL IVP ONE (10:30)
[2017-02-23] MEDS: PANTOPRAZOLE SOD 20 MG TABEC PO SCH (12:22)
--- NOTE | 2017-02-23 19:05 | Hospitalist Progress Note ---
Subjective Progress Notes Subjective Mrs. Calderón is a 76yo female who was recently admitted with pneumonia, a-fib, CHF. She returned home two days ago. She reports doing well for the first 24-36 hours, but early this AM she awoke with dyspnea and chest fullness/tightness. She did not appreciate any overt palpitations or heart racing. She did not report chest pain. No fevers or chills. Some cough with scant sputum. She was evaluated in the ER and found to have evidence of CHF with bilateral pleural effusions, peripheral edema. Her BNP was elevated at 1660. Her troponin was 0.033. While in the ER, she went into atrial fibrillation with RVR. She was recommended for admission. 02/23: She is feeling somewhat SOB, She has h/o COPD and she takes inhalers. She also mentioned that she feels puffy in her legs and belly. She also c/o abdominal loraine after she eats in am. Patient Complains of: Neurological: Weakness, No: Syncope, Confusion, Dizziness Cardiovascular: Palpitations, Other, No: Chest Pain Respiratory: Cough, Congestion, Shortness of Breath, Wheezing Gastrointestinal: Nausea, No Vomiting, No Flatus Genitourinary: No Dysuria, No Hematuria Musculoskeletal: Other, No: Pain, Sprain, Strain Physical Exam Vital Signs Date Time Temp Pulse Resp B/P (MAP) Pulse Ox O2 Delivery O2 Flow Rate FiO2 02/23/17 08:43 92 Nasal Cannula 3.0 02/23/17 08:43 111 02/23/17 08:03 97.9 20 120/77 (91) Intake and Output 02/24/17 07:00 Intake Total 450 ml Balance 450 ml Intake Oral 450 ml General Appearance: Alert, Awake, No Acute Distress, Afebrile Neuro: No Gross deficits Eyes: PERRLA ENT: Normal Cardiovascular: Other (a.fib) Respiratory: Other (mild resp. distress with decrease air entry) GI: Soft and Non-Tender Musculoskeletal: No Weakness/Pain Extremities: Soft and Non Tender, Edema Psych: Alert & Oriented X3, Appropriate Mood & Affect Result Diagram: 02/22/17 0538 02/23/17 0593 Assessment and Plan Problems: (1) Congestive heart failure Status: Acute Assessment & Plan: She presented with increased shortness of breath. We treated her with a dose of IV Lasix, and she has diuresed some. An echocardiogram from her last admission showed an ejection fraction of 40%. She is on chronic treatment with carvedilol. 02/23: Her A/P CT scan revealed anasarca and she does have LE edema. I will use Lasix 40mg IV one dose today and check her BMP and BNP in am and elevation of her LE above her Heart level. (2) Atrial fibrillation with RVR Status: Chronic Assessment & Plan: She is on amiodarone and Xarelto. (3) COPD (chronic obstructive pulmonary disease) Status: Chronic Assessment & Plan: She is on chronic treatment with Xopenex and prednisone. Central Venous Access Medical Necessity for Access: IV Access, Medication Administration Condition Guarded Time Spent on Plan of Care: > 30 min Exam Sepsis Risk: No Definite Risk Problem Qualifiers (1) Congestive heart failure: Congestive heart failure type: unspecified congestive heart failure type Congestive heart failure chronicity: acute on chronic Qualified Codes: I50.9 - Heart failure, unspecified ENDY COONEY MD Feb 23, 2017 19:05
[2017-02-23] MEDS: METOPROLOL TART 50 MG TAB PO SCH (20:46)
[2017-02-23 20:47] VITALS: BP 182/88
[2017-02-23] MEDS: MIRTAZAPINE 15 MG TAB PO SCH (20:47)
[2017-02-23 22:51] VITALS: BP 125/85
[2017-02-24 03:00] VITALS: BP 156/74
[2017-02-24 08:06] VITALS: BP 175/100
[2017-02-24] MEDS: AMIODARONE 200 MG TAB PO SCH ×2 (08:22→20:45)
[2017-02-24] MEDS: buPROPion XL 150 MG TABCR PO SCH (08:22)
[2017-02-24] MEDS: METOPROLOL TART 50 MG TAB PO SCH (08:22)
[2017-02-24] MEDS: RIVAROXABAN 10 MG TAB PO SCH (08:23)
[2017-02-24] MEDS: PANTOPRAZOLE SOD 20 MG TABEC PO SCH (08:23)
[2017-02-24] MEDS: predniSONE 10 MG TAB PO SCH (08:23)
[2017-02-24 11:04] VITALS: BP 151/80
--- NOTE | 2017-02-24 12:16 | Hospitalist Progress Note ---
Subjective Progress Notes Subjective Mrs. Calderón is a 76yo female who was recently admitted with pneumonia, a-fib, CHF. She returned home two days ago. She reports doing well for the first 24-36 hours, but early this AM she awoke with dyspnea and chest fullness/tightness. She did not appreciate any overt palpitations or heart racing. She did not report chest pain. No fevers or chills. Some cough with scant sputum. She was evaluated in the ER and found to have evidence of CHF with bilateral pleural effusions, peripheral edema. Her BNP was elevated at 1660. Her troponin was 0.033. While in the ER, she went into atrial fibrillation with RVR. She was recommended for admission. 02/23: She is feeling somewhat SOB, She has h/o COPD and she takes inhalers. She also mentioned that she feels puffy in her legs and belly. She also c/o abdominal loraine after she eats in am. 02/24: She is feeling better from her respiratory point of view. She felt better after her Lasix dose yesterday and her LE edema has improved. Her HR has been sig. improved after changing her Coreg to Metoprolol 50mg po am and 25mg po qpm. She is feeling better but her BNP is still 1070 but her breathing has improved. Patient Complains of: Neurological: No: Syncope, Confusion, Dizziness Cardiovascular: No: Chest Pain, Palpitations Respiratory: Shortness of Breath, No: Cough, Congestion, Wheezing Gastrointestinal: No Nausea, No Vomiting, No Flatus Genitourinary: No Dysuria, No Hematuria Musculoskeletal: No: Pain, Sprain, Strain Physical Exam Vital Signs Date Time Temp Pulse Resp B/P (MAP) Pulse Ox O2 Delivery O2 Flow Rate FiO2 02/24/17 11:04 98.2 56 16 151/80 (103) Nasal Cannula 3.0 02/24/17 08:40 97 Intake and Output 02/25/17 07:00 Intake Total 500 ml Balance 500 ml Intake Oral 500 ml # Voids 2 General Appearance: Alert, Awake, No Acute Distress, Afebrile Neuro: No Gross deficits Eyes: PERRLA ENT: Normal Cardiovascular: Other (a.fib with HR 60) Respiratory: No Respiratory Distress (few rhonchi and decrease air entry) GI: Soft and Non-Tender Extremities: Soft and Non Tender, Pulses Integumentary: Skin Intact without Lesion / Mass Psych: Alert & Oriented X3, Appropriate Mood & Affect Result Diagram: 02/22/17 0538 02/24/17 0515 Assessment and Plan Problems: (1) Congestive heart failure Status: Acute Assessment & Plan: She presented with increased shortness of breath. We treated her with a dose of IV Lasix, and she has diuresed some. An echocardiogram from her last admission showed an ejection fraction of 40%. She is on chronic treatment with carvedilol. 02/23: Her A/P CT scan revealed anasarca and she does have LE edema. I will use Lasix 40mg IV one dose today and check her BMP and BNP in am and elevation of her LE above her Heart level. 02/24: Her fluid status has improved after Lasix dose and she responded well. I advised her to use Lasix as needed at home. Avoid high salt use. She can be d/c' d in am and she does not require SEED TRUCKER as per patient. 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 Xarelto vs ASA and Echo. (2) Atrial fibrillation with RVR Status: Chronic Assessment & Plan: She is on amiodarone and Xarelto. (3) COPD (chronic obstructive pulmonary disease) Status: Chronic Assessment & Plan: She is on chronic treatment with Xopenex and prednisone. 02/24: Her HCO3 is 48 and it is a combination of Chronic COPD and Lasix. I will continue her current management. Central Venous Access Medical Necessity for Access: IV Access, Medication Administration Time Spent on Plan of Care: > 30 min Copies to: FEMI CUMMINGS DO; CARROLL GONZALES MD Exam Sepsis Risk: No Definite Risk Problem Qualifiers (1) Congestive heart failure: Congestive heart failure type: unspecified congestive heart failure type Congestive heart failure chronicity: acute on chronic Qualified Codes: I50.9 - Heart failure, unspecified ENDY COONEY MD Feb 24, 2017 12:16
[2017-02-24 15:09] VITALS: BP 170/84
[2017-02-24 19:20] VITALS: BP 136/65
[2017-02-24] MEDS: MIRTAZAPINE 15 MG TAB PO SCH (20:45)
[2017-02-24] MEDS ORDERED: METOPROLOL TART 50 MG TAB PO SCH (21:00)
[2017-02-25 04:17] VITALS: BP 148/86
[2017-02-25 07:22] VITALS: BP 160/87
[2017-02-25] MEDS ORDERED: METOPROLOL TART 50 MG TAB PO SCH (09:00)
[2017-02-25] MEDS: AMIODARONE 200 MG TAB PO SCH (09:53)
[2017-02-25] MEDS: predniSONE 10 MG TAB PO SCH (09:53)
[2017-02-25] MEDS: buPROPion XL 150 MG TABCR PO SCH (09:54)
[2017-02-25] MEDS: PANTOPRAZOLE SOD 20 MG TABEC PO SCH (09:54)
[2017-02-25] MEDS: RIVAROXABAN 10 MG TAB PO SCH (09:55)
--- NOTE | 2017-02-25 10:02 | Hospitalist Depart ---
Discharge Summary Reason for Hosp/Final Diag: (1) Congestive heart failure Status: Acute Hospital Course & Plan: She presented with increased shortness of breath. She was treated with IV Lasix and received 2 doses of 40mg. Her symptoms improved. An echocardiogram from her last admission showed an ejection fraction of 40%. She has been on chronic treatment with carvedilol. Will continue as an outpatient. She is to call and schedule a follow up appointment with Dr. Rivera for the next available appointment. Will add Lasix 20mg po daily prn as an outpatient. She and her family have been given parameters on how to use the Lasix. (2) Atrial fibrillation with RVR Status: Chronic Hospital Course & Plan: She is on carvedilol, amiodarone and Xarelto. Will continue as an outpatient. She will follow up with cardiology as above. (3) COPD (chronic obstructive pulmonary disease) Status: Chronic Hospital Course & Plan: She was continued on chronic treatment with Xopenex and prednisone. Departure Weight (Pounds): 96 Weight (Ounces): 3.0 Result Diagram: 02/22/17 0538 02/24/17 0515 Item Value Date Time Calcium Level 7.9 mg/dl L 02/22/17 0538 Total Bilirubin 0.3 mg/dl 02/22/17 0538 Aspartate Amino Transf (AST/SGOT) 22 U/L 02/22/17 0538 Alanine Aminotransferase (ALT/SGPT) 49 U/L 02/22/17 0538 Alkaline Phosphatase 53 U/L 02/22/17 0538 Total Protein 4.8 gm/dl L 02/22/17 0538 Albumin 2.5 g/dl L 02/22/17 0538 B-Type Natriuretic Peptide 931 pg/ml H 02/22/17 0538 B-Type Natriuretic Peptide 1070 pg/ml H 02/24/17 0515 Urine Color Yellow 02/21/17 1113 Urine Clarity Clear 02/21/17 1113 Urine pH 5.0 pH 02/21/17 1113 Urine Specific [place] 1.030 02/21/17 1113 Urine Protein Negative mg/dL 02/21/17 1113 Urine Glucose (UA) Negative mg/dL 02/21/17 1113 Urine Ketones Negative mg/dL 02/21/17 1113 Urine Blood Negative 02/21/17 1113 Urine Nitrite Negative 02/21/17 1113 Urine Bilirubin Negative 02/21/17 1113 Urine Urobilinogen Negative mg/dL 02/21/17 1113 Urine Leukocyte Esterase Negative 02/21/17 1113 Urine RBC None /HPF 02/21/17 1113 Urine WBC 2 /HPF 02/21/17 1113 Urine Squamous Epithelial Cells Few /LPF 02/21/17 1113 Urine Bacteria Negative /HPF 02/21/17 1113 Urine Hyaline Casts Few /LPF 02/21/17 1113 Urine Mucus Few /HPF 02/21/17 1113 Blood cultures negative to date. Imaging FACILITY: [facility] [place] PATIENT NAME: Chey Calderón : 1940 MR: [id number] V: [id number] EXAM DATE: ORDERING PHYSICIAN: JANNY MARSHALL TECHNOLOGIST: Location: [facility] Patient: Chey Calderón : 1940 Visit/Account:[id number] Date of Sevice: 02/21/2017 ABDOMEN/PELVIS WITH CONTRAST HISTORY: abdominal pain TECHNIQUE: Following administration of IV contrast contiguous axial images acquired through the abdomen/pelvis. Coronal and sagittal reformatting also performed. Dose Lowering Technique One of the following dose optimization techniques was utilized in the performance of this exam: Automated exposure control; adjustment of the mA and/ or kV according to the patient's size; or use of an iterative reconstruction technique. Specific details can be referenced in the facility's radiology CT exam operational policy. CONTRAST: 75 mL Isovue-370 COMPARISON: August 02, 2016 FINDINGS: Visualized lung bases: Severe centrilobular emphysema again noted. There are moderate bilateral posterior layering pleural effusions and moderate airspace consolidation in the visualized lower lobes . Hepatobiliary: There are postsurgical changes from a cholecystectomy with intra and extrahepatic biliary ductal dilatation although appears similar to the prior study. Tiny scattered peripheral hypodensities are again seen in the liver that appear similar to the prior study Spleen: Negative. Adrenals: Negative. Pancreas: Negative. Kidneys ureters or bladder: Cortical hypodensities are seen in both kidneys. The largest appear to represent cysts. The smaller ones are too small to characterize by by CT although statistically represent cysts no evidence of hydronephrosis or hydroureter . There is a small amount of air in the urinary bladder. May be related to recent catheterization although clinical correlation needed Genitalia: Hysterectomy GI: Diverticulosis of the left-sided colon although no CT evidence of acute diverticulitis. Vessels/spaces/nodes: There are moderate vascular calcifications present. There are pelvic varicosities on the left Bones/soft tissues: There is diffuse anasarca. Degenerative listhesis of L4 with respect L5 similar to the prior examination and to lesser extent L2 with respect L3. Additional findings: None pertinent. IMPRESSION: Severe centrilobular emphysema Moderate bilateral posterior layering pleural effusions with moderate airspace consolidation in the visualized lower lobes consistent with infiltrates and/or atelectasis Postsurgical changes from a cholecystectomy with intra and Ductal dilatation similar to the prior study Tiny scattered peripheral hypodensities in the liver appears some are to the prior study Small amount of air seen in the urinary bladder which may be related to catheterization although clinical correlation needed Diverticulosis left-sided colon although no CT evidence of acute diverticulitis Diffuse anasarca Report Dictated By: Ninfa Moya MD at 02/21/2017 11:06 AM Report E-Signed By: Ninfa Moya MD at 02/21/2017 11:26 AM WSN:AMICIVN FACILITY: [facility] [place] [facility] PATIENT NAME: Chey Calderón : 1940 MR: [id number] V: [id number] EXAM DATE: ORDERING PHYSICIAN: JANNY MARSHALL TECHNOLOGIST: Location: [facility] Patient: Chey Calderón : 1940 Visit/Account:[id number] Date of Sevice: 02/21/2017 CTA CHEST WW/O CNTR (PULM ANG) HISTORY: chest pain, shortness of breath ADDITIONAL HISTORY: None. TECHNIQUE: CTA chest with intravenous contrast. Axial imaging acquired following administration of IV contrast timed for maximum opacification of the pulmonary arterial vasculature. Slab 3-D MIP reconstructed images were also created for further evaluation and interpretation. Reconstruction of the source data set includes multiplanar 2-D in the sagittal and coronal planes and 3-D reconstructed coronal slab MIP series. 3-D images were created by the technologist. Dose Lowering Technique One of the following dose optimization techniques was utilized in the performance of this exam: Automated exposure control; adjustment of the mA and/ or kV according to the patient's size; or use of an iterative reconstruction technique. Specific details can be referenced in the facility's radiology CT exam operational policy. CONTRAST: 75 mL Isovue-370 COMPARISON: August 02, 2016 FINDINGS: Lungs/pleura: Again noted is severe diffuse centrilobular emphysema. There has been development of moderate bilateral posterior layering pleural effusions and a moderate amount of airspace consolidation in the lower lobes. Mild secretions seen in the right main bronchus and right lower lobe bronchioles Heart/vessels: Negative. There are no filling defects seen in the pulmonary arteries worrisome for a pulmonary embolus.. There are mild to moderate vascular callus occasions in the thoracic aorta and branch vessels including the coronary arteries Mediastinum/lymph nodes: Negative. Visualized upper abdomen: Please see today's CT of abdomen pelvis dictation Bones/soft tissues: No aggressive appearing bone lesion seen. Diffuse anasarca. Additional findings: None IMPRESSION: No evidence of pulmonary emboli. Severe diffuse centrilobular emphysema Moderate bilateral posterior layering pleural effusions with a moderate amount of airspace consolidation in the lower lobes consistent with infiltrates and/or atelectasis. Mild secretions seen in the right main bronchus and right lower lobe bronchioles Report Dictated By: Ninfa Moya MD at 02/21/2017 11:26 AM Report E-Signed By: Ninfa Moya MD at 02/21/2017 11:33 AM WSN:AMICIVN FACILITY: [facility] [place] PATIENT NAME: Chey Calderón : 1940 MR: [id number] V: [id number] EXAM DATE: ORDERING PHYSICIAN: JANNY MARSHALL TECHNOLOGIST: Location: [facility] Patient: Chey Calderón : 1940 Visit/Account:[id number] Date of Sevice: 02/21/2017 Exam: ACUTE ABDOMEN SERIES 3 VIEW Indication: chest pain, short of breath, abdominal pain, RAD Comparison: Chest x-ray 02/14/2017 Findings: Single view of the chest shows prominent cardiac silhouette. Coarse interstitial changes are present throughout both lungs with bibasilar atelectasis versus possible infiltrate present. There are small bilateral pleural effusions noted. The abdomen shows a nonobstructive bowel gas pattern present. No abnormal masses or calcifications are identified. IMPRESSION: 1. Bibasilar atelectasis versus infiltrate with small pleural effusions superimposed upon chronic interstitial changes 2. Nonobstructive bowel gas pattern Report Dictated By: Jordan Olmedo at 02/21/2017 9:09 AM Report E-Signed By: Jordan Olmedo at 02/21/2017 9:12 AM WSN:ASIF Condition: Improved Discharge: Home, Self Care Discharge Code Status: Full Code Time Spent: < 30 min Discharge Instructions Home Meds Active Scripts Furosemide (LASIX) 20 Mg Tablet, 1 TAB PO DAILY Y for prn, #15 TAB Take 1 daily for increased edema, increased shortness of breath or eat a diet higher in salt that usual. Prov:JAIME BAXTER MD 02/25/17 Rivaroxaban 15 Mg (XARELTO 15 MG) 15 Mg Tablet, 15 MG PO QDAY, #30 TAB Prov:CHRISTIAN LECHUGA DO 02/19/17 Amiodarone Hcl (PACERONE) 200 Mg Tablet, 200 MG PO BID, #14 TAB Prov:CHRISTIAN LECHUGA DO 02/19/17 Levalbuterol Tartrate (XOPENEX HFA) 15 Gm Hfa.aer.ad, 2 PUFF IH QID Y for SHORTNESS OF BREATH, #1 INHALER Prov:CHRISTIAN LECHUGA DO 02/19/17 Prednisone 10 Mg Tab (PREDNISONE 10 MG TAB) 10 Mg Tablet, 10 MG PO QDAY, #30 TAB Prov:CHRISTIAN LECHUGA DO 02/19/17 Carvedilol (CARVEDILOL) 6.25 Mg Tab, 3 TAB PO BID, #120 TAB Prov:CHRISTIAN LECHUGA DO 02/19/17 Bupropion Hcl (BUPROPION XL) 300 Mg Tab.er.24h, 300 MG PO QDAY, #30 TAB Prov:CHRISTIAN LECHUGA DO 02/19/17 Reported Medications Mirtazapine (MIRTAZAPINE) 7.5 Mg Tablet, 7.5 MG PO QHS 08/02/16 Discontinued Reported Medications Prednisone 10 Mg Tab (PREDNISONE 10 MG TAB) 10 Mg Tablet, 7.5 MG PO QDAY, TAB 02/12/17 Hydroxyzine Pamoate (HYDROXYZINE PAMOATE) 25 Mg Capsule, 25 MG PO PRN, CAPSULE 02/12/17 Albuterol Sulfate (VENTOLIN HFA) 18 Gm Inh, 1-2 PUFF INH 3-4XD, INH 01/03/17 Bupropion Hcl (WELLBUTRIN XL) 150 Mg Tab.er.24h, 450 MG PO QDAY, TAB 10/23/16 Losartan Potassium (LOSARTAN POTASSIUM) 50 Mg Tablet, 50 MG PO BID 10/23/16 Carvedilol (CARVEDILOL) 6.25 Mg Tab, 6.25 MG PO BID, TAB x 30 days 10/22/16 Vilazodone Hydrochloride (VIIBRYD) 20 Mg Tablet, 30 MG PO QDAY 08/02/16 Quetiapine Fumarate (SEROQUEL) 25 Mg Tablet, 12.5 MG PO HS 08/02/16 Discontinued Scripts Tramadol Hcl (TRAMADOL HCL) 50 Mg Tablet, 1 TAB PO PRN Y for PAIN, #30 TAB Prov:BRYANT MCDOWELL MD 01/13/17 Follow up Referrals: Cardiology - In One Month @ [facility] with Bryant Rivera Md Internal Medicine - In One Week with Femi Spencer Internal Medicine - In Two Weeks with Mitzi Leigh Diet: Regular Activity: As Tolerated Special Instructions: The patient is to take Lasix as needed. She will take a dose daily if she has increased shortness of breath, increased lower extremity edema, or has had a diet that is higher in salt that usual (restaurant meal, holidays, etc.) Copies to: FEMI SPENCER DO; BRYANT RIVERA MD; MITZI MCCARTHY ENGINE BOSS Venous Thromboembolism Antithrombotics Is Pt On Any Antithrombotics?: Yes Problem Qualifiers (1) Congestive heart failure: Congestive heart failure type: unspecified congestive heart failure type Congestive heart failure chronicity: acute on chronic Qualified Codes: I50.9 - Heart failure, unspecified JAIME BAXTER MD Feb 25, 2017 10:02
[2017-02-25] MEDS ORDERED: FURO20TA19 PO (10:04)
== END 2017-02-25 12:10 | disposition home or self-care (01) | DRG 292 ==
LOC: ER 08:20 → MED 12:05
PROVIDERS: ADMIT Internal Medicine; ATTEND Internal Medicine
DX: I11.0 Hypertensive heart disease with heart failure (principal); E44.0 Moderate protein-calorie malnutrition; Z68.1 Body mass index [BMI] 19.9 or less, adult; I48.0 Paroxysmal atrial fibrillation; I50.23 Acute on chronic systolic (congestive) heart failure; R09.02 Hypoxemia; J44.9 Chronic obstructive pulmonary disease, unspecified; F17.210 Nicotine dependence, cigarettes, uncomplicated; F41.8 Other specified anxiety disorders; K21.9 Gastro-esophageal reflux disease without esophagitis; I25.2 Old myocardial infarction; Z90.49 Acquired absence of other specified parts of digestive tract; Z79.01 Long term (current) use of anticoagulants; Z90.710 Acquired absence of both cervix and uterus; Z99.81 Dependence on supplemental oxygen; Z88.5 Allergy status to narcotic agent; Z88.8 Allergy status to other drugs, medicaments and biological substances
CPT/HCPCS: 36415; 71275; 74022; 74177; 81001; 82040; 82150; 82247; 82310; 82374; 82435; 82565; 82947; 83605; 83690; 83880; 84075; 84132; 84155; 84295; 84450; 84460; 84484; 84520; 85025; 86140; 87040; 87088; 93005; 96374; 96375; 97161; 99285; J1940; J2930; J3490; J7050; J7512; Q9967

== ENCOUNTER → 2017-02-21 | Outpatient (CLI) | payer MEDICARE, BC ==
[~2017-02-21] MED LIST: ACET-1748 PO; ACET500T68 PO; ALB18R INH; ALBU8.5H IH; ALBU8.5H12 IH; ALPR-1 PO; AMIO200T51 PO; AMIT-1 PO; ASPI-1471 PO; ASPI-717 PO; BUPR-124 PO; BUPR-472 PO; BUPR300T56 PO; CALC-1 PO; CAR6.25 PO; CEPH500T7 PO; CYPR4TAB32 PO; DOXY-228 PO; ESCI20TA38 PO; ESOM20CA31 PO; ESOM40CA42 PO; EST3; EST625 PO; FLUT1AER INH; FURO20TA19 PO; HYDR25CA13 PO; LEVA15HF IH; LOPE2CAP15 PO; LOR5/325 PO; LOSA25TA50 PO; LOSA50TA72 PO; METO-259 PO; MIRT7.5T2 PO; MULT-865 PO; OXYGENHOME INH; PRE1 PO; PRED-1 PO; PRED20TA6 PO; QUET25TA30 PO; RIVA15TA PO; SPIR25TA78 PO; TRAM-420 PO; TRAM-627 PO; VENL150C61 PO; VILA20TA PO
[2017-02-22 12:35] VITALS: BMI 18.3
== END ==
LOC: AMB 07:55
PROVIDERS: ATTEND Nurse Practitioner
DX: R07.9 Chest pain, unspecified (principal); I45.10 Unspecified right bundle-branch block
CPT/HCPCS: A0425; A0427

== ENCOUNTER 2017-03-27 10:40 | Emergency (ER) | payer MEDICARE, BC ==
[2017-02-22 12:35] VITALS: Ht 157.5 cm; Wt 43.6 kg
[~2017-03-27] VITALS: Ht 157.5 cm; Wt 43.6 kg
[~2017-03-27 10:40] MED LIST changes: +FURO20TA19 PO
--- NOTE | 2017-03-27 10:44 | ER Report ---
History and Physical Time Seen By MD: 10:43 HPI/ROS CHIEF COMPLAINT: chest heaviness HISTORY OF PRESENT ILLNESS: Patient is a 76-year-old female with past medical history for atrial fibrillation, heart failure, and COPD who wears 3 L of oxygen chronically. Presents to the emergency Department today with complaint of chest tightness that began earlier this morning around 7 AM patient also feels quite short of breath despite using her oxygen. Patient is a "former smoker" but does continue to have episodes where she'll take a puff of the cigarettes from time to time. REVIEW OF SYSTEMS: Constitutional: No fever, no chills. Eyes: No discharge. ENT: No sore throat. Cardiovascular: No chest pain, no palpitations. She reports chest tightness Respiratory: shortness of breath. Gastrointestinal: No abdominal pain, no vomiting. Genitourinary: No hematuria. Musculoskeletal: No back pain. Skin: No rashes. Neurological: No headache. Allergies: Coded Allergies: codeine (Verified Allergy, Intermediate, SWOLLEN EYES, 03/27/17) morphine (Verified Allergy, Intermediate, SWOLLEN EYES, 03/27/17) Home Meds Active Scripts Furosemide (LASIX) 20 Mg Tablet, 1 TAB PO DAILY Y for prn, #15 TAB Take 1 daily for increased edema, increased shortness of breath or eat a diet higher in salt that usual. Prov:JAIME BAXTER MD 02/25/17 Rivaroxaban 15 Mg (XARELTO 15 MG) 15 Mg Tablet, 15 MG PO QDAY, #30 TAB Prov:CHRISTIAN LECHUGA DO 02/19/17 Amiodarone Hcl (PACERONE) 200 Mg Tablet, 200 MG PO BID, #14 TAB Prov:CHRISTIAN LECHUGA DO 02/19/17 Levalbuterol Tartrate (XOPENEX HFA) 15 Gm Hfa.aer.ad, 2 PUFF IH QID Y for SHORTNESS OF BREATH, #1 INHALER Prov:CHRISTIAN LECHUGA DO 02/19/17 Prednisone 10 Mg Tab (PREDNISONE 10 MG TAB) 10 Mg Tablet, 10 MG PO QDAY, #30 TAB Prov:CHRISTIAN LECHUGA DO 02/19/17 Carvedilol (CARVEDILOL) 6.25 Mg Tab, 3 TAB PO BID, #120 TAB Prov:CHRISTIAN LECHUGA DO 02/19/17 Bupropion Hcl (BUPROPION XL) 300 Mg Tab.er.24h, 300 MG PO QDAY, #30 TAB Prov:CHRISTIAN LECHUGA DO 02/19/17 Reported Medications Mirtazapine (MIRTAZAPINE) 7.5 Mg Tablet, 7.5 MG PO QHS 08/02/16 Past Medical/Surgical History Past medical history significant for atrial fibrillation, congestive heart failure, hypertension, Colace cystitis, history of epigastric pain and bronchitis. Hx Smoking: Yes (10 TO 15 CIGARETTES PER DAY FOR 40 YEARS) Smoking Status: Current: Every Day Smoker Exposure to Second Hand Smoke?: No Hx Substance Use Disorder: No Hx Alcohol Use: No Constitutional Vital Sign - Last 24 Hours 03/27/17 03/27/17 03/27/17 03/27/17 10:40 10:47 10:54 10:56 Temp 98.3 Pulse ??? 65 Resp 22 B/P (MAP) 176/85 176/85 (115) Pulse Ox 99 O2 Delivery Nasal Cannula O2 Flow Rate 3.0 3 03/27/17 03/27/17 03/27/17 03/27/17 11:00 11:10 11:20 11:20 Pulse 67 62 Resp 22 25 B/P (MAP) 156/84 Pulse Ox 99 99 O2 Delivery Nasal Cannula O2 Flow Rate 3.0 03/27/17 03/27/17 03/27/17 03/27/17 11:30 11:35 11:50 11:51 Pulse 64 67 Resp 21 26 B/P (MAP) 130/79 130/72 (91) Pulse Ox 97 97 03/27/17 03/27/17 03/27/17 03/27/17 12:00 12:05 12:15 12:20 Pulse 66 66 Resp 25 20 B/P (MAP) 133/68 (89) 127/73 (91) Pulse Ox 95 97 03/27/17 03/27/17 03/27/17 03/27/17 12:25 12:25 12:30 12:34 Pulse 67 66 Resp 17 22 B/P (MAP) 136/70 (92) Pulse Ox 98 O2 Delivery Nasal Cannula O2 Flow Rate 3.0 03/27/17 03/27/17 03/27/17 03/27/17 12:35 12:45 12:50 13:00 Pulse 66 69 Resp 15 33 B/P (MAP) 153/77 (102) 134/67 (89) Pulse Ox 100 93 03/27/17 03/27/17 03/27/17 03/27/17 13:05 13:15 13:20 13:25 Pulse 63 64 68 Resp 19 18 23 B/P (MAP) 127/64 (85) Pulse Ox 96 97 98 03/27/17 03/27/17 03/27/17 03/27/17 13:38 13:40 13:45 13:45 Pulse 65 65 Resp 27 18 B/P (MAP) 148/80 (102) 131/70 (90) Pulse Ox 95 03/27/17 03/27/17 03/27/17 03/27/17 13:45 13:53 13:55 14:00 Pulse 64 64 Resp 16 16 B/P (MAP) 130/71 (90) Pulse Ox 95 100 O2 Delivery Nasal Cannula O2 Flow Rate 3.0 03/27/17 14:10 Pulse ??? Physical Exam General Appearance: The patient is alert, has no immediate need for airway protection and no signs of toxicity. Eyes: Pupils equal and round no pallor or injection. ENT, Mouth: Mucous membranes are moist. Respiratory: She with mild retractions, patient with increased work of breathing , patient with crackles to the right lung base. Also diffuse wheezing. Breath sounds are also diminished bilaterally Cardiovascular: Regular rate and rhythm. Gastrointestinal: Abdomen is soft and non tender, no masses, bowel sounds normal. Neurological: awake alert Skin: Warm and dry, no rashes. Musculoskeletal: Neck is supple non tender. Extremities are nontender, nonswollen and have full range of motion. Medical Decision Making Data Points Result Diagram: 03/27/17 1052 03/27/17 1052 Laboratory Hematology Test 03/27/17 10:52 03/27/17 12:45 03/27/17 13:40 Red Blood Count 3.89 M/uL (4.17-5.56) Mean Corpuscular Volume 96.3 fL (80.0-96.0) Mean Corpuscular Hemoglobin 31.2 pg (26.0-33.0) Mean Corpuscular Hemoglobin Concent 32.4 g/dL (32.0-36.0) Red Cell Distribution Width 14.8 % (11.5-14.5) Mean Platelet Volume 7.9 fL (7.2-11.1) Neutrophils (%) (Auto) 85.2 % (39.4-72.5) Lymphocytes (%) (Auto) 10.5 % (17.6-49.6) Monocytes (%) (Auto) 3.5 % (4.1-12.4) Eosinophils (%) (Auto) 0.2 % (0.4-6.7) Basophils (%) (Auto) 0.6 % (0.3-1.4) Nucleated RBC Relative Count (auto) 0.0 /100WBC Neutrophils # (Auto) 9.5 K/uL (2.0-7.4) Lymphocytes # (Auto) 1.2 K/uL (1.3-3.6) Monocytes # (Auto) 0.4 K/uL (0.3-1.0) Eosinophils # (Auto) 0.0 K/uL (0.0-0.5) Basophils # (Auto) 0.1 K/uL (0.0-0.1) Nucleated RBC Absolute Count (auto) 0.01 K/uL Prothrombin Time 13.1 seconds (12.0-14.4) Prothromb Time International Ratio 0.99 Activated Partial Thromboplast Time 29 seconds (23-35) Sodium Level 139 mmol/L (137-145) Potassium Level 3.8 mmol/L (3.5-5.0) Chloride Level 95 mmol/L (98-107) Carbon Dioxide Level 37 mmol/L (22-31) Blood Urea Nitrogen 16 mg/dl (7-18) Creatinine 0.80 mg/dl (0.52-1.04) Glomerular Filtration Rate Calc > 60.0 Random Glucose 105 mg/dl (75-110) Calcium Level 9.4 mg/dl (8.4-10.2) Total Bilirubin 0.4 mg/dl (0.2-1.3) Aspartate Amino Transf (AST/SGOT) 19 U/L (0-35) Alanine Aminotransferase (ALT/SGPT) 27 U/L (0-56) Alkaline Phosphatase 53 U/L (0-126) B-Type Natriuretic Peptide 610 pg/ml (0-100) Total Protein 6.8 gm/dl (6.3-8.2) Albumin 3.7 g/dl (3.5-5.0) Urine Color Yellow Urine Clarity Clear Urine pH 6.0 pH (4.8-9.5) Urine Specific Padroni 1.008 Urine Protein Negative mg/dL (NEGATIVE) Urine Glucose (UA) Negative mg/dL (NEGATIVE) Urine Ketones Negative mg/dL (NEGATIVE) Urine Blood Negative (NEGATIVE) Urine Nitrite Negative (NEGATIVE) Urine Bilirubin Negative (NEGATIVE) Urine Urobilinogen Negative mg/dL (0.2-1.9) Urine Leukocyte Esterase Trace (NEGATIVE) Urine RBC 1 /HPF (0-2/HPF) Urine WBC 1 /HPF (0-5/HPF) Urine Squamous Epithelial Cells Many /LPF (</=FEW) Urine Transitional Epithelial Cells Few /LPF (NONE-FEW) Urine Bacteria Few /HPF (NONE-FEW) Urine Hyaline Casts Few /LPF (NONE-FEW) Urine Mucus None /HPF (NONE-FEW) Troponin I < 0.012 ng/ml Chemistry Test 03/27/17 10:52 03/27/17 12:45 03/27/17 13:40 White Blood Count 11.2 k/uL (4.5-11.0) Red Blood Count 3.89 M/uL (4.17-5.56) Hemoglobin 12.1 g/dL (12.0-16.0) Hematocrit 37.4 % (34.0-47.0) Mean Corpuscular Volume 96.3 fL (80.0-96.0) Mean Corpuscular Hemoglobin 31.2 pg (26.0-33.0) Mean Corpuscular Hemoglobin Concent 32.4 g/dL (32.0-36.0) Red Cell Distribution Width 14.8 % (11.5-14.5) Platelet Count 347 K/uL (150-450) Mean Platelet Volume 7.9 fL (7.2-11.1) Neutrophils (%) (Auto) 85.2 % (39.4-72.5) Lymphocytes (%) (Auto) 10.5 % (17.6-49.6) Monocytes (%) (Auto) 3.5 % (4.1-12.4) Eosinophils (%) (Auto) 0.2 % (0.4-6.7) Basophils (%) (Auto) 0.6 % (0.3-1.4) Nucleated RBC Relative Count (auto) 0.0 /100WBC Neutrophils # (Auto) 9.5 K/uL (2.0-7.4) Lymphocytes # (Auto) 1.2 K/uL (1.3-3.6) Monocytes # (Auto) 0.4 K/uL (0.3-1.0) Eosinophils # (Auto) 0.0 K/uL (0.0-0.5) Basophils # (Auto) 0.1 K/uL (0.0-0.1) Nucleated RBC Absolute Count (auto) 0.01 K/uL Prothrombin Time 13.1 seconds (12.0-14.4) Prothromb Time International Ratio 0.99 Activated Partial Thromboplast Time 29 seconds (23-35) Glomerular Filtration Rate Calc > 60.0 Calcium Level 9.4 mg/dl (8.4-10.2) Total Bilirubin 0.4 mg/dl (0.2-1.3) Aspartate Amino Transf (AST/SGOT) 19 U/L (0-35) Alanine Aminotransferase (ALT/SGPT) 27 U/L (0-56) Alkaline Phosphatase 53 U/L (0-126) B-Type Natriuretic Peptide 610 pg/ml (0-100) Total Protein 6.8 gm/dl (6.3-8.2) Albumin 3.7 g/dl (3.5-5.0) Urine Color Yellow Urine Clarity Clear Urine pH 6.0 pH (4.8-9.5) Urine Specific Padroni 1.008 Urine Protein Negative mg/dL (NEGATIVE) Urine Glucose (UA) Negative mg/dL (NEGATIVE) Urine Ketones Negative mg/dL (NEGATIVE) Urine Blood Negative (NEGATIVE) Urine Nitrite Negative (NEGATIVE) Urine Bilirubin Negative (NEGATIVE) Urine Urobilinogen Negative mg/dL (0.2-1.9) Urine Leukocyte Esterase Trace (NEGATIVE) Urine RBC 1 /HPF (0-2/HPF) Urine WBC 1 /HPF (0-5/HPF) Urine Squamous Epithelial Cells Many /LPF (</=FEW) Urine Transitional Epithelial Cells Few /LPF (NONE-FEW) Urine Bacteria Few /HPF (NONE-FEW) Urine Hyaline Casts Few /LPF (NONE-FEW) Urine Mucus None /HPF (NONE-FEW) Troponin I < 0.012 ng/ml Coagulation Test 03/27/17 10:52 Prothrombin Time 13.1 seconds Prothromb Time International Ratio 0.99 Activated Partial Thromboplast Time 29 seconds Urinalysis Test 03/27/17 12:45 Urine Color Yellow Urine Clarity Clear Urine pH 6.0 pH (4.8-9.5) Urine Specific Padroni 1.008 Urine Protein Negative mg/dL (NEGATIVE) Urine Glucose (UA) Negative mg/dL (NEGATIVE) Urine Ketones Negative mg/dL (NEGATIVE) Urine Blood Negative (NEGATIVE) Urine Nitrite Negative (NEGATIVE) Urine Bilirubin Negative (NEGATIVE) Urine Urobilinogen Negative mg/dL (0.2-1.9) Urine Leukocyte Esterase Trace (NEGATIVE) Urine RBC 1 /HPF (0-2/HPF) Urine WBC 1 /HPF (0-5/HPF) Urine Squamous Epithelial Cells Many /LPF (</=FEW) Urine Transitional Epithelial Cells Few /LPF (NONE-FEW) Urine Bacteria Few /HPF (NONE-FEW) Urine Hyaline Casts Few /LPF (NONE-FEW) Urine Mucus None /HPF (NONE-FEW) EKG/Imaging EKG Interpretation EKG obtained at this time shows normal sinus rhythm with ventricular rate of 67 bpm there is a left bundle branch block. This was compared to an EKG obtained on 02/21/2017 which continues to show a left bundle branch block however at the time the patient was in atrial fibrillation with rapid ventricular response. Monitor Interpretation: Normal Sinus Rhythm Imaging [place] [facility] [place] NAME: Cehy Calderón : 1940 MR: [id number] V: [id number] EXAM DATE: ORDERING PHYSICIAN: BIANKA AHINES TECHNOLOGIST: Location: [facility] - [place] Patient: Chey Calderón : 1940 Visit/Account:[id number] Date of Sevice: 03/27/2017 Chest single view: HISTORY: Shortness of breath. Patient states no chest pain. History of pneumonia. COMPARISON: 02/21/2017, CT scan 02/21/2017 FINDINGS: Frontal view the chest: Heart is enlarged. There is prominence of the central vasculature and interstitial markings but less pronounced than on the prior study. Minimal residual left basilar opacity is present, atelectasis and/or infiltrate. There is no large pleural effusion. No pneumothorax. IMPRESSION: 1. Mild cardiomegaly, prominence of the vasculature and interstitial markings, findings may be indicative of early changes of congestive heart failure or volume overload. Alternatively, an acute infectious process such as a bronchitis could have a similar appearance patient does appear improved compared to previous. 2. Residual left basilar opacity, atelectasis versus infiltrate. Report Dictated By: Marcie Rai MD at 03/27/2017 11:18 AM Report E-Signed By: Marcie Rai MD at 03/27/2017 11:21 AM WSN:[facility] ED Course/Re-evaluation ED Course 03/27/2017 11:04:22 am plan at this time will be to perform a workup including troponin brain atretic peptide chest x-ray EKG and serial troponins. We'll give a breathing treatment at this time. 03/27/2017 2:16:03 pm patient has received a total of 3 nebulizer treatments also received 20 mg of IV Lasix her symptoms are greatly improved. She was able to ambulate with her usual 3 L nasal cannula oxygen up and down the emergency department without becoming symptomatic or to Oxygen saturations remaining above 92% at all times. Plan at this time will be to have the patient take additional 20 mg of Lasix over the next 2 days then discontinue schedule follow- up appointment with her primary care provider. She was instructed to return if her dyspnea seems to worsen at any point if she develops a fever or productive cough or if her symptoms do not improve within 2 days concerns at time of discharge. Daughter also agrees with current treatment plan. Decision to Disposition Date: Mar 27, 2017 Decision to Disposition Time: 14:15 Depart Departure Latest Vital Signs Vital Signs Date Time Temp Pulse Resp B/P (MAP) Pulse Ox O2 Delivery O2 Flow Rate FiO2 03/27/17 14:10 ??? 03/27/17 14:00 130/71 (90) 03/27/17 13:55 16 100 03/27/17 13:45 Nasal Cannula 3.0 03/27/17 10:56 98.3 Core Temperature (Celsius): 37.2 Impression: Primary Impression: Pulmonary edema Condition: Improved Disposition: HOME OR SELF-CARE Referrals: FEMI CUMMINGS DO (PCP) 2 Days Patient Instructions: Pulmonary Edema (ED) Additional Instructions: Take all your prescribed medications as directed. For the next 2 days starting tomorrow take Lasix 20 mg daily. If at any point you developed fevers or chills or productive cough or worsening of your symptoms including chest pressure pain or shortness of breath he should return to the emergency department immediately for repeat evaluation. Problem Qualifiers Primary Impression: Pulmonary edema Chronicity: acute Qualified Codes: J81.0 - Acute pulmonary edema BIANKA HAINES MD Mar 27, 2017 10:44
[2017-03-27] MEDS ORDERED: ASPIRIN 81 MG CHEW PO ONE (10:45)
[2017-03-27 11:00] LABS: PLATELET COUNT, AUTOMATED 347 K/uL (150-450)
[2017-03-27] MEDS ORDERED: ALBUTEROL/IPRATROPIUM 3 ML NEB NEB ONE ×2 (11:05→12:25)
[2017-03-27 11:10] LABS: INR 0.99
--- NOTE | 2017-03-27 11:26 | RADIOLOGY IMAGING REPORT ---
FACILITY: [facility] PATIENT NAME: Chey Calderón : 1940 MR: [id number] V: [id number] EXAM DATE: ORDERING PHYSICIAN: BIANKA HAINES TECHNOLOGIST: Location: [facility] - [place] Patient: Chey Calderón : 1940 Visit/Account:[id number] Date of Sevice: 03/27/2017 Chest single view: HISTORY: Shortness of breath. Patient states no chest pain. History of pneumonia. COMPARISON: 02/21/2017, CT scan 02/21/2017 FINDINGS: Frontal view the chest: Heart is enlarged. There is prominence of the central vasculature and interstitial markings but less pronounced than on the prior study. Minimal residual left basilar opacity is present, atelectasis and/or infiltrate. There is no large pleural effusion. No pneumoth orax. IMPRESSION: 1. Mild cardiomegaly, prominence of the vasculature and interstitial markings, findings may be indic ative of early changes of congestive heart failure or volume overload. Alternatively, an acute infec tious process such as a bronchitis could have a similar appearance patient does appear improved shamri red to previous. 2. Residual left basilar opacity, atelectasis versus infiltrate. Report Dictated By: Marcie Rai MD at 03/27/2017 11:18 AM Report E-Signed By: Marcie Rai MD at 03/27/2017 11:21 AM WSN:[id number]
[2017-03-27] MEDS ORDERED: NITROGLYCERIN OINT 1 GM PKT TP ONE (11:45)
[2017-03-27] MEDS ORDERED: FUROSEMIDE 20 MG/2 ML VIAL IVP ONE (11:45)
[2017-03-27] MEDS ORDERED: methylPREDNIS SUCC 125 MG/2ML IVP ONE (12:25)
--- NOTE | 2017-03-27 13:42 | EKG ---
FACILITY: [facility] PATIENT NAME: TAYLOR WASHINGTON : [id number] MR: [id number] V: [id number] EXAM DATE: ORDERING PHYSICIAN: BIANKA HANIES TECHNOLOGIST: Test Reason : Blood Pressure : / mmHG Vent. Rate : 067 BPM Atrial Rate : 067 BPM P-R Int : 152 ms QRS Dur : 128 ms QT Int : 458 ms P-R-T Axes : 073 -51 084 degrees QTc Int : 483 ms Normal sinus rhythm Possible Left atrial enlargement Left axis deviation Left bundle branch block Abnormal ECG When compared with ECG of 21-FEB-2017 11:38, No longer in atrial fibrillation with RVR Confirmed by WHIT PATEL ([id number]) on 03/27/2017 8:05:52 PM Referred By: YANCY Confirmed By:WHIT PATEL
[2017-03-27] MEDS ORDERED: ALBUTEROL 2.5 MG/3 ML NEB NEB ONE (13:45)
[2017-03-27 14:00] VITALS: BP 130/71
[2017-03-28] MEDS ORDERED: PRED20TA6 PO (18:06)
[2017-03-28] MEDS ORDERED: ALBU2.5V36 INH (18:06)
== END 2017-03-27 14:41 | disposition home or self-care (01) ==
LOC: ER 11:11
DX: J81.0 Acute pulmonary edema (principal)
CPT/HCPCS: 71045; 81001; 83880; 84484; 85025; 85610; 85730; 93005; 94640; 96374; 96375; 99284; A9270; J1940; J2930; J7613; J7620; 82040; 82247; 82310; 82374; 82435; 82565; 82947; 84075; 84132; 84155; 84295; 84450; 84460; 84520

== ENCOUNTER 2017-03-28 15:37 | Emergency (ER) | payer MEDICARE, BC ==
[2017-02-22 12:35] VITALS: Ht 157.5 cm; Wt 43.6 kg
[~2017-03-28] VITALS: Ht 157.5 cm; Wt 43.6 kg
--- NOTE | 2017-03-28 15:48 | ER Report ---
History and Physical Time Seen By MD: 15:40 Hx. of Stated Complaint: CONTINUED SOB HPI/ROS CHIEF COMPLAINT: sob HISTORY OF PRESENT ILLNESS: PT has been sob for last week or so. Pt sleeping in a chair at night because lying flat makes symptoms worse. PT was seen here yesterday and had an extra dose of lasix. Pt arrived today with diffuse wheezing. PT denies chest pain. no cough. PT is asmoker REVIEW OF SYSTEMS: Constitutional: No fever, no chills. Eyes: No discharge. ENT: No sore throat. Cardiovascular: No chest pain, no palpitations. Respiratory: No cough, + shortness of breath. Gastrointestinal: No abdominal pain, no vomiting. Genitourinary: No hematuria. Musculoskeletal: No back pain. Skin: No rashes. Neurological: No headache. Allergies: Coded Allergies: codeine (Verified Allergy, Intermediate, SWOLLEN EYES, 03/28/17) morphine (Verified Allergy, Intermediate, SWOLLEN EYES, 03/28/17) Home Meds Active Scripts Furosemide (LASIX) 20 Mg Tablet, 1 TAB PO DAILY Y for prn, #15 TAB Take 1 daily for increased edema, increased shortness of breath or eat a diet higher in salt that usual. Prov:JAIME BAXTER MD 02/25/17 Rivaroxaban 15 Mg (XARELTO 15 MG) 15 Mg Tablet, 15 MG PO QDAY, #30 TAB Prov:CHRISTIAN LECHUGA DO 02/19/17 Amiodarone Hcl (PACERONE) 200 Mg Tablet, 200 MG PO BID, #14 TAB Prov:CHRISTIAN LECHUGA DO 02/19/17 Levalbuterol Tartrate (XOPENEX HFA) 15 Gm Hfa.aer.ad, 2 PUFF IH QID Y for SHORTNESS OF BREATH, #1 INHALER Prov:CHRISTIAN LECHUGA DO 02/19/17 Prednisone 10 Mg Tab (PREDNISONE 10 MG TAB) 10 Mg Tablet, 10 MG PO QDAY, #30 TAB Prov:CHRISTIAN LECHUGA DO 02/19/17 Carvedilol (CARVEDILOL) 6.25 Mg Tab, 3 TAB PO BID, #120 TAB Prov:CHRISTIAN LECHUGA DO 02/19/17 Bupropion Hcl (BUPROPION XL) 300 Mg Tab.er.24h, 300 MG PO QDAY, #30 TAB Prov:CHRISTIAN ELCHUGA DO 02/19/17 Reported Medications Mirtazapine (MIRTAZAPINE) 7.5 Mg Tablet, 7.5 MG PO QHS 08/02/16 Past Medical/Surgical History Pmhx: afib, chf, copd, bronchitis Reviewed Nurses Notes: Yes Old Medical Records Reviewed: Yes Hx Smoking: Yes (10 TO 15 CIGARETTES PER DAY FOR 40 YEARS) Smoking Status: Current: Every Day Smoker Exposure to Second Hand Smoke?: No Hx Substance Use Disorder: No Hx Alcohol Use: No Constitutional Vital Sign - Last 24 Hours 03/28/17 03/28/17 03/28/17 03/28/17 15:46 15:46 16:00 16:00 Temp 98.8 Pulse 78 70 70 Resp 22 27 19 B/P (MAP) 140/85 146/84 (104) Pulse Ox 95 100 O2 Delivery Nasal Cannula O2 Flow Rate 3.0 03/28/17 03/28/17 03/28/17 03/28/17 16:00 16:15 16:30 16:45 Pulse 66 Resp 24 B/P (MAP) 130/86 (101) 145/76 (99) 167/87 (113) Pulse Ox 98 O2 Delivery Nasal Cannula O2 Flow Rate 3.5 03/28/17 03/28/17 03/28/17 03/28/17 17:00 17:15 17:24 17:30 Pulse 67 68 66 Resp 30 21 22 B/P (MAP) 140/78 (98) 148/83 (104) 151/79 (103) Pulse Ox 98 97 03/28/17 17:45 B/P (MAP) 170/92 (118) Physical Exam General Appearance: The patient is alert, has no immediate need for airway protection and no signs of toxicity. Eyes: Pupils equal and round no pallor or injection, EOMI ENT: no pharyngeal erythema or exudates, Mucous membranes are moist, TM are nl b/l Respiratory: decreased breathsounds with wheezing throughout Cardiovascular: Regular rate and rhythm. pulses are equal and symmetrical Gastrointestinal: Abdomen is soft and non tender, no masses, bowel sounds normal, no guarding, no rigidity or rebound Neurological: Cranial nerves II-XII grossly intact, no sensory or motor loss Skin: Warm and dry, no rashes. Musculoskeletal: Neck is supple non tender, no vertebral tenderness Extremities are nontender, non swollen and have full range of motion. DIFFERENTIAL DIAGNOSIS: After history and physical exam differential diagnosis was considered for chf, copd exacerbation, pneumonia Medical Decision Making Data Points Result Diagram: 03/28/17 1555 03/28/17 1555 Laboratory Hematology Test 03/28/17 15:55 Red Blood Count 3.78 M/uL (4.17-5.56) Mean Corpuscular Volume 95.4 fL (80.0-96.0) Mean Corpuscular Hemoglobin 31.5 pg (26.0-33.0) Mean Corpuscular Hemoglobin Concent 33.0 g/dL (32.0-36.0) Red Cell Distribution Width 14.5 % (11.5-14.5) Mean Platelet Volume 8.4 fL (7.2-11.1) Neutrophils (%) (Auto) 87.0 % (39.4-72.5) Lymphocytes (%) (Auto) 6.4 % (17.6-49.6) Monocytes (%) (Auto) 6.3 % (4.1-12.4) Eosinophils (%) (Auto) 0.0 % (0.4-6.7) Basophils (%) (Auto) 0.3 % (0.3-1.4) Nucleated RBC Relative Count (auto) 0.0 /100WBC Neutrophils # (Auto) 10.3 K/uL (2.0-7.4) Lymphocytes # (Auto) 0.8 K/uL (1.3-3.6) Monocytes # (Auto) 0.7 K/uL (0.3-1.0) Eosinophils # (Auto) 0.0 K/uL (0.0-0.5) Basophils # (Auto) 0.0 K/uL (0.0-0.1) Nucleated RBC Absolute Count (auto) 0.00 K/uL Sodium Level 138 mmol/L (137-145) Potassium Level 3.8 mmol/L (3.5-5.0) Chloride Level 95 mmol/L (98-107) Carbon Dioxide Level 33 mmol/L (22-31) Blood Urea Nitrogen 29 mg/dl (7-18) Creatinine 0.80 mg/dl (0.52-1.04) Glomerular Filtration Rate Calc > 60.0 Random Glucose 106 mg/dl (75-110) Calcium Level 9.5 mg/dl (8.4-10.2) Total Bilirubin 0.3 mg/dl (0.2-1.3) Aspartate Amino Transf (AST/SGOT) 20 U/L (0-35) Alanine Aminotransferase (ALT/SGPT) 31 U/L (0-56) Alkaline Phosphatase 50 U/L (0-126) Troponin I < 0.012 ng/ml B-Type Natriuretic Peptide 247 pg/ml (0-100) Total Protein 6.8 gm/dl (6.3-8.2) Albumin 3.8 g/dl (3.5-5.0) Chemistry Test 03/28/17 15:55 White Blood Count 11.8 k/uL (4.5-11.0) Red Blood Count 3.78 M/uL (4.17-5.56) Hemoglobin 11.9 g/dL (12.0-16.0) Hematocrit 36.0 % (34.0-47.0) Mean Corpuscular Volume 95.4 fL (80.0-96.0) Mean Corpuscular Hemoglobin 31.5 pg (26.0-33.0) Mean Corpuscular Hemoglobin Concent 33.0 g/dL (32.0-36.0) Red Cell Distribution Width 14.5 % (11.5-14.5) Platelet Count 321 K/uL (150-450) Mean Platelet Volume 8.4 fL (7.2-11.1) Neutrophils (%) (Auto) 87.0 % (39.4-72.5) Lymphocytes (%) (Auto) 6.4 % (17.6-49.6) Monocytes (%) (Auto) 6.3 % (4.1-12.4) Eosinophils (%) (Auto) 0.0 % (0.4-6.7) Basophils (%) (Auto) 0.3 % (0.3-1.4) Nucleated RBC Relative Count (auto) 0.0 /100WBC Neutrophils # (Auto) 10.3 K/uL (2.0-7.4) Lymphocytes # (Auto) 0.8 K/uL (1.3-3.6) Monocytes # (Auto) 0.7 K/uL (0.3-1.0) Eosinophils # (Auto) 0.0 K/uL (0.0-0.5) Basophils # (Auto) 0.0 K/uL (0.0-0.1) Nucleated RBC Absolute Count (auto) 0.00 K/uL Glomerular Filtration Rate Calc > 60.0 Calcium Level 9.5 mg/dl (8.4-10.2) Total Bilirubin 0.3 mg/dl (0.2-1.3) Aspartate Amino Transf (AST/SGOT) 20 U/L (0-35) Alanine Aminotransferase (ALT/SGPT) 31 U/L (0-56) Alkaline Phosphatase 50 U/L (0-126) Troponin I < 0.012 ng/ml B-Type Natriuretic Peptide 247 pg/ml (0-100) Total Protein 6.8 gm/dl (6.3-8.2) Albumin 3.8 g/dl (3.5-5.0) EKG/Imaging EKG Interpretation nsr @ 70 with atrial enlargement and lbbb; similar to priors ED Course/Re-evaluation Clinical Indication for ER IV: IV Access ED Course 03/28/2017 4:12:43 pm WIll give pt a dose of solumedrol and nebulizer for an hour. 03/28/2017 4:55:55 pm PT almost finished with her hour long neb. pt states she is feeling much better "i can breath". Lungs are no longer decreased and only an occasional wheeze. PT does not own a nebulizer. If she elects to go home and not be admitted then she will require a nebulizer for Q4 hour nebs while awake and will also need steriods daily for 5 days. 03/28/2017 6:01:25 pm Pt wants to go home. kenna get her a home nebulizer and steriods. Decision to Disposition Date: Mar 28, 2017 Decision to Disposition Time: 18:02 Critical Care Time I spent a total of 30 minutes of critical care time in obtaining history, performing a physical exam, bedside monitoring of interventions, collecting and interpreting tests and discussion with consultants but not including time spent performing procedures. Depart Departure Latest Vital Signs Vital Signs Date Time Temp Pulse Resp B/P (MAP) Pulse Ox O2 Delivery O2 Flow Rate FiO2 03/28/17 17:45 170/92 (118) 03/28/17 17:30 66 22 97 03/28/17 16:00 Nasal Cannula 3.5 03/28/17 15:46 98.8 Core Temperature (Celsius): 37.2 Impression: Primary Impression: COPD with exacerbation Condition: Improved Disposition: HOME OR SELF-CARE Referrals: FEMI CUMMINGS DO (PCP) 2 Days New Scripts Albuterol Sulfate 0.083% (ALBUTEROL SULFATE 0.083%) 2.5 Mg/3 Ml Vial.neb 2.5 MG INH Q4-6H Y for SHORTNESS OF BREATH, #25 INH 1 Refill Prov: SAFIA SALAZAR DO 03/28/17 Prednisone (PREDNISONE) 20 Mg Tablet 20 MG PO BID, #10 TAB Prov: SAFIA SALAZAR DO 03/28/17 Departure Forms: ER Transition Record, Home Oxygen, Nebulizer RX, Durable Medical Equipment-Oxygen: Nebulizer Reason for Use/Diagnosis: copd exacerbation; acute bronchospasms Start Date of the Order: Mar 28, 2017 Route of Administration (if applicable): Other Duration Home O2 Required: 30 Duration Units: Days Room Air Oxygen Saturation: 95 ER Prescribing Physician's Name: Safia Salazar NPI Numbers for Local ER MDs: Luis Miguel [id number] Medications Reconciliation, Patient Portal Information Patient Instructions: COPD (Chronic Obstructive Pulmonary Disease) (ED) Additional Instructions: We are starting you prednisone twice a day. Albuterol nebulizer every 4 hours while awake as needed for cough, sob or wheezing. Follow up with your doctor Return as needed. SAFIA SALAZAR DO Mar 28, 2017 15:48
[2017-03-28] MEDS ORDERED: IPRATROPIUM 0.5MG/2.5ML NEB NEB ONE (15:50)
[2017-03-28] MEDS ORDERED: ALBUTEROL 2.5 MG/3 ML NEB NEB ONE (15:50)
[2017-03-28] MEDS ORDERED: methylPREDNIS SUCC 125 MG/2ML IVP ONE (15:50)
[2017-03-28] MEDS ORDERED: FUROSEMIDE 40 MG/4 ML VIAL IVP ONE (15:50)
[2017-03-28 16:07] LABS: PLATELET COUNT, AUTOMATED 321 K/uL (150-450)
--- NOTE | 2017-03-28 16:19 | EKG ---
FACILITY: [facility] - [place] PATIENT NAME: TAYLOR WASHINGTON : [id number] MR: [id number] V: [id number] EXAM DATE: ORDERING PHYSICIAN: UTE SALAZAR TECHNOLOGIST: LUCRETIA Cobb Reason : Blood Pressure : / mmHG Vent. Rate : 068 BPM Atrial Rate : 068 BPM P-R Int : 142 ms QRS Dur : 130 ms QT Int : 432 ms P-R-T Axes : 072 066 097 degrees QTc Int : 459 ms Normal sinus rhythm Possible Left atrial enlargement Nonspecific intraventricular block Cannot rule out Anteroseptal infarct , age undetermined Abnormal ECG When compared with ECG of 27-MAR-2017 10:52, QRS axis shifted right Non-specific change in ST segment in Inferior leads Confirmed by CHRISTIAN LECHUGA ([id number]) on 03/30/2017 8:56:28 AM Referred By: MARTIN Confirmed By:CHRISTIAN LECHUGA
--- NOTE | 2017-03-28 17:43 | RADIOLOGY IMAGING REPORT ---
FACILITY: [facility] PATIENT NAME: Chey Calderón : 1940 MR: [id number] V: [id number] EXAM DATE: ORDERING PHYSICIAN: UTE SALAZAR TECHNOLOGIST: [place] [facility] [place] Chey Calderón : 1940 Visit/Account:[id number] Date of Sevice: 03/28/2017 Examination: CHEST SINGLE AP Comparison: 03/27/2017 and earlier. History: Wheezing. Findings: Cardiac silhouette is mildly enlarged but unchanged. No new or enlarging consolidation. Unc hanged mild prominence of the interstitial markings with no evidence of acute peribronchial inflammat ion. No pneumothorax, edema, or effusion. Osseous structures are intact. IMPRESSION: Unchanged chest with no definite evidence of acute cardiopulmonary disease. Report Dictated By: Dexter Chan MD at 03/28/2017 5:38 PM Report E-Signed By: Dexter Chan MD at 03/28/2017 5:39 PM WSN:[id number]
[2017-03-28] MEDS ORDERED: PRED20TA6 PO (18:06)
[2017-03-28] MEDS ORDERED: ALBU2.5V36 INH (18:06)
[2017-03-28 18:07] VITALS: BP 156/79
== END 2017-03-28 18:10 | disposition home or self-care (01) ==
LOC: ER 15:44
DX: J44.1 Chronic obstructive pulmonary disease with (acute) exacerbation (principal)
CPT/HCPCS: 71045; 83880; 84484; 85025; 93005; 94644; 96374; 96375; 99284; J1940; J2930; J7613; J7644; 82040; 82247; 82310; 82374; 82435; 82565; 82947; 84075; 84132; 84155; 84295; 84450; 84460; 84520

== ENCOUNTER → 2017-04-16 | Outpatient (CLI) | payer MEDICARE, BC ==
[2017-02-22 12:35] VITALS: BMI 18.3
[~2017-04-16] MED LIST changes: +ALBU2.5V36 INH; +REGADENOSON 0.4 MG/5 ML SYR ONE
--- NOTE | 2017-04-18 07:32 | RADIOLOGY IMAGING REPORT ---
FACILITY: [facility] - [place] PATIENT NAME: Chey Calderón : 1940 MR: [id number] V: [id number] EXAM DATE: [id number] ORDERING PHYSICIAN: LAURITA GONZALES TECHNOLOGIST: Location: [facility] Patient: Chey Calderón : 1940 Visit/Account:[id number] Date of Sevice: 04/16/2017 EXAMINATION: Single isotope SPECT imaging with regadenoson infusion and gated SPECT imaging. DATE OF EXAMINATION: April 16, 2017. DATE OF INTERPRETATION: April 16, 2017. REQUESTING PHYSICIAN: LAURITA GONZALES. INDICATION: The patient is a 76-year-old female evaluated for chest pain. PROCEDURE: After informed consent the patient received an intravenous injection of 10.9 mCi of Tc-99 m sestamibi followed at an appropriate time interval by rest imaging. The patient then subsequently received an intravenous infusion of 0.4 mg of regadenoson per protocol without complication. Resting heart rate was 71 bpm with a peak heart rate of 94 bpm. Blood pressure at rest was 154 / 97 and fol lowing infusion was 181 / 84. Baseline EKG demonstrates normal sinus rhythm with a left bundle branc h block. There were no EKG changes of ischemia following infusion. Symptoms were nonspecific. The patient then received an intravenous injection of 26.9 mCi of Tc-99m sestamibi followed by stress seb ging. RAW DATA: Examination of the summed raw data revealed a good quality study. MYOCARDIAL PERFUSION: The tomographic images demonstrate a moderate decrease in myocardial perfusion tracer uptake in the mid to apical anterior and anteroseptal wall seen on both stress and rest image s consistent with a prior myocardial infarction. No reversible defect noted. GATED IMAGES: The gated images demonstrate an ejection fraction 28% with global hypokinesis worse in the apical anteroseptal wall. IMPRESSION: 1. Abnormal myocardial perfusion scan with evidence of a mid to apical anterior and anteroseptal álvaro cardial infarction. No inducible ischemia noted 2. Abnormal myocardial perfusion scan. 3. Abnormal LV systolic function; LVEF 28%. 4. Based on the results of this exam, the patient appears to be at high risk for future cardiovascula r events. Report Dictated By: Lana Marin at 04/18/2017 7:27 AM Report E-Signed By: Lana Marin at 04/18/2017 7:29 AM WSN:[id number]
== END ==
LOC: RESP 00:51
PROVIDERS: ATTEND Internal Medicine Cardiovascular Disease
DX: R07.89 Other chest pain (principal); R94.39 Abnormal result of other cardiovascular function study
CPT/HCPCS: 78452; 93017; A9500; J2785

== ENCOUNTER 2017-04-29 09:09 | Emergency (ER) | payer MEDICARE, BC ==
[2017-02-22 12:35] VITALS: Wt 43.6 kg
[~2017-04-29 09:09] MED LIST changes: -APIX2.5T PO; -ASPI81TA94 PO; -ATOR10TA24 PO; -LOSA-54 PO; -NITR0.4T3 SL; -POTA25TA28 PO; -VILA10TA PO
--- NOTE | 2017-04-29 09:14 | ER Report ---
History and Physical Time Seen By MD: 09:13 HPI/ROS CHIEF COMPLAINT: chest pain HISTORY OF PRESENT ILLNESS: This is a 77 year old female. She had onset of crushing chest pain at about 0830 this morning. Radiation to both arms. Sweating and nausea. Just had a stent at [facility] on 03/25/17. History of LBBB. EMS gave aspirin. She took 2 doses of nitro without relief. She was on Xarelto for atrial fibrillation, just changed to Eliquis. Did not take her medication this morning. Is supposed to be on Plavix, but the pharmacy did not have any, so not on it yet. No fevers or chills. She is short of breath, but no cough. REVIEW OF SYSTEMS: Normal bowels. No dysuria or problems with bladder function. Normal vision. No headache, but has mild dizziness. Allergies: Coded Allergies: codeine (Verified Allergy, Intermediate, SWOLLEN EYES, 04/29/17) morphine (Verified Adverse Reaction, Intermediate, SWOLLEN EYES, 04/29/17) MAKES HER FEEL FUNNY Home Meds Active Scripts Albuterol Sulfate 0.083% (ALBUTEROL SULFATE 0.083%) 2.5 Mg/3 Ml Vial.neb, 2.5 MG INH Q4-6H Y for SHORTNESS OF BREATH, #25 INH 1 Refill Prov:UTE SALAZAR DO 03/28/17 Prednisone (PREDNISONE) 20 Mg Tablet, 20 MG PO BID, #10 TAB Prov:UTE SALAZAR V DO 03/28/17 Furosemide (LASIX) 20 Mg Tablet, 1 TAB PO DAILY Y for prn, #15 TAB Take 1 daily for increased edema, increased shortness of breath or eat a diet higher in salt that usual. Prov:JAIME BAXTER MD 02/25/17 Rivaroxaban 15 Mg (XARELTO 15 MG) 15 Mg Tablet, 15 MG PO QDAY, #30 TAB Prov:CHRISTIAN LECHUGA DO 02/19/17 Amiodarone Hcl (PACERONE) 200 Mg Tablet, 200 MG PO BID, #14 TAB Prov:CHRISTIAN LECHUGA DO 02/19/17 Levalbuterol Tartrate (XOPENEX HFA) 15 Gm Hfa.aer.ad, 2 PUFF IH QID Y for SHORTNESS OF BREATH, #1 INHALER Prov:CHRISTIAN LECHUGA DO 02/19/17 Prednisone 10 Mg Tab (PREDNISONE 10 MG TAB) 10 Mg Tablet, 10 MG PO QDAY, #30 TAB Prov:CHRISTIAN LECHUGA DO 02/19/17 Carvedilol (CARVEDILOL) 6.25 Mg Tab, 3 TAB PO BID, #120 TAB Prov:CHRISTIAN LECHUGA DO 02/19/17 Bupropion Hcl (BUPROPION XL) 300 Mg Tab.er.24h, 300 MG PO QDAY, #30 TAB Prov:CHRISTIAN LECHUGA DO 02/19/17 Reported Medications Mirtazapine (MIRTAZAPINE) 7.5 Mg Tablet, 7.5 MG PO QHS 08/02/16 Past Medical/Surgical History CHF, coronary artery disease, hypertension, A. fib, endocarditis, COPD, tobacco use, left bundle branch block Reviewed Nurses Notes: Yes Hx Smoking: Yes (10 TO 15 CIGARETTES PER DAY FOR 40 YEARS) Smoking Status: Current: Every Day Smoker Exposure to Second Hand Smoke?: No Hx Substance Use Disorder: No Hx Alcohol Use: No Constitutional Vital Sign - Last 24 Hours 04/29/17 04/29/17 04/29/17 04/29/17 09:14 09:20 09:20 09:30 Pulse 60 Resp 14 B/P (MAP) 124/79 124/79 (94) 143/99 (114) Pulse Ox 80 O2 Delivery Room Air O2 Flow Rate 4.0 04/29/17 04/29/17 04/29/17 04/29/17 09:45 09:52 09:54 09:55 Pulse 60 B/P (MAP) 158/93 (114) 161/96 (117) 154/87 (109) Pulse Ox 97 04/29/17 04/29/17 04/29/17 04/29/17 10:00 10:05 10:09 10:10 Pulse 65 B/P (MAP) 153/96 (115) 149/120 (130) 161/99 (119) Pulse Ox 94 04/29/17 04/29/17 04/29/17 04/29/17 10:15 10:20 10:24 10:25 Pulse 58 B/P (MAP) 151/84 (106) 148/84 (105) 135/84 (101) Physical Exam General Appearance: The patient is alert. Acute distress due to pain. Non- toxic in appearance. Eyes: Pupils are equal, round. Reactive to light. No pallor, injection or icterus. extraocular movement are intact. ENT: Mucous membranes are moist. Posterior oropharynx is normal. Neck: Supple and non tender. No lymphadenopathy. Respiratory: Lungs are clear to auscultation. Cardiovascular: Regular rate and rhythm. No murmurs, gallops or rubs. Normal capillary refill. No edema. Gastrointestinal: Abdomen is soft and non tender. But upset stomach. Nondistended. Normal active bowel sounds. Neurological: Alert and oriented x3. No focal neurologic deficits Skin: Warm and dry. No rashes. Bruising on right wrist where she had her cath on the . Musculoskeletal: Extremities are nontender. Full range of motion. No tenderness in palpation of the cervical, thoracic and lumbar spine. DIFFERENTIAL DIAGNOSIS: After history and physical exam, differential diagnosis was considered for chest pain including but not limited to myocardial ischemia, pericarditis pulmonary embolus, chest wall pain, pleural inflammation and pulmonary infectious causes. Medical Decision Making Data Points Result Diagram: 04/29/17 0930 04/29/17 0930 Laboratory Hematology Test 04/29/17 09:30 Red Blood Count 3.26 M/uL (4.17-5.56) Mean Corpuscular Volume 96.2 fL (80.0-96.0) Mean Corpuscular Hemoglobin 30.6 pg (26.0-33.0) Mean Corpuscular Hemoglobin Concent 31.8 g/dL (32.0-36.0) Red Cell Distribution Width 14.1 % (11.5-14.5) Mean Platelet Volume 7.6 fL (7.2-11.1) Neutrophils (%) (Auto) 60.6 % (39.4-72.5) Lymphocytes (%) (Auto) 24.2 % (17.6-49.6) Monocytes (%) (Auto) 11.7 % (4.1-12.4) Eosinophils (%) (Auto) 2.3 % (0.4-6.7) Basophils (%) (Auto) 1.2 % (0.3-1.4) Nucleated RBC Relative Count (auto) 0.0 /100WBC Neutrophils # (Auto) 6.3 K/uL (2.0-7.4) Lymphocytes # (Auto) 2.5 K/uL (1.3-3.6) Monocytes # (Auto) 1.2 K/uL (0.3-1.0) Eosinophils # (Auto) 0.2 K/uL (0.0-0.5) Basophils # (Auto) 0.1 K/uL (0.0-0.1) Nucleated RBC Absolute Count (auto) 0.00 K/uL D-Dimer Quantitative (PE/DVT) < 0.27 ug/ml (0-0.50) Sodium Level 140 mmol/L (137-145) Potassium Level 3.8 mmol/L (3.5-5.0) Chloride Level 102 mmol/L (98-107) Carbon Dioxide Level 35 mmol/L (22-31) Blood Urea Nitrogen 21 mg/dl (7-18) Creatinine 0.80 mg/dl (0.52-1.04) Glomerular Filtration Rate Calc > 60.0 Random Glucose 115 mg/dl (75-110) Calcium Level 8.8 mg/dl (8.4-10.2) Total Bilirubin 0.2 mg/dl (0.2-1.3) Aspartate Amino Transf (AST/SGOT) 21 U/L (0-35) Alanine Aminotransferase (ALT/SGPT) 27 U/L (0-56) Alkaline Phosphatase 55 U/L (0-126) Troponin I 0.046 ng/ml Total Protein 5.6 gm/dl (6.3-8.2) Albumin 2.9 g/dl (3.5-5.0) Chemistry Test 04/29/17 09:30 White Blood Count 10.4 k/uL (4.5-11.0) Red Blood Count 3.26 M/uL (4.17-5.56) Hemoglobin 10.0 g/dL (12.0-16.0) Hematocrit 31.4 % (34.0-47.0) Mean Corpuscular Volume 96.2 fL (80.0-96.0) Mean Corpuscular Hemoglobin 30.6 pg (26.0-33.0) Mean Corpuscular Hemoglobin Concent 31.8 g/dL (32.0-36.0) Red Cell Distribution Width 14.1 % (11.5-14.5) Platelet Count 366 K/uL (150-450) Mean Platelet Volume 7.6 fL (7.2-11.1) Neutrophils (%) (Auto) 60.6 % (39.4-72.5) Lymphocytes (%) (Auto) 24.2 % (17.6-49.6) Monocytes (%) (Auto) 11.7 % (4.1-12.4) Eosinophils (%) (Auto) 2.3 % (0.4-6.7) Basophils (%) (Auto) 1.2 % (0.3-1.4) Nucleated RBC Relative Count (auto) 0.0 /100WBC Neutrophils # (Auto) 6.3 K/uL (2.0-7.4) Lymphocytes # (Auto) 2.5 K/uL (1.3-3.6) Monocytes # (Auto) 1.2 K/uL (0.3-1.0) Eosinophils # (Auto) 0.2 K/uL (0.0-0.5) Basophils # (Auto) 0.1 K/uL (0.0-0.1) Nucleated RBC Absolute Count (auto) 0.00 K/uL D-Dimer Quantitative (PE/DVT) < 0.27 ug/ml (0-0.50) Glomerular Filtration Rate Calc > 60.0 Calcium Level 8.8 mg/dl (8.4-10.2) Total Bilirubin 0.2 mg/dl (0.2-1.3) Aspartate Amino Transf (AST/SGOT) 21 U/L (0-35) Alanine Aminotransferase (ALT/SGPT) 27 U/L (0-56) Alkaline Phosphatase 55 U/L (0-126) Troponin I 0.046 ng/ml Total Protein 5.6 gm/dl (6.3-8.2) Albumin 2.9 g/dl (3.5-5.0) Coagulation Test 04/29/17 09:30 D-Dimer Quantitative (PE/DVT) < 0.27 ug/ml EKG/Imaging EKG Interpretation 12 lead EKG: Rhythm: Sinus bradycardia, rate 59 [place]: Left axis deviation QRS: Left bundle-branch block ST segments: ST elevations in leads V2 through V6 with reciprocal ST depressions in 23 and aVF On comparison with prior EKGs, the left bundle branch block was present. The ST elevation and depression pattern is much more significant on this EKG than on previous suggesting this is indeed a ST elevation NM Imaging Chest x-ray single view obtained, no acute cardiopulmonary processes are noted, radiology reading is pending ED Course/Re-evaluation Clinical Indication for ER IV: IV Access ED Course After seeing the EKG in comparing to previous, along with the patient's symptoms , this appears to be an ST elevation NM. I called and spoke with Dr. Veras, cardiology. After our discussion, we gave thrombolytics. She had one relative contraindication which was being on Eliquis. Last dose of Eliquis was yesterday AM. She is not on Plavix. Plavix 300mg and heparin were started. She is being transferred to [facility] by helicopter. Consent and review of risks and benefits was done with the patient and her [id number] and her daughter in law gave consent. TNKase was administered as noted. Plavix 300mg oral dose. Heparin bolus and drip started. Patient started to get an expanding hematoma of the right wrist where she had her cath last week. Pressure dressing applied to this area. Lost IV access on the left arm, but the right side is running well. Starting to have weeping at IV sites, so the heparin drip was discontinued. Flight crew has arrived and patient transfer proceeding. Decision to Disposition Date: Apr 29, 2017 Decision to Disposition Time: 09:41 Critical Care Time I spent a total of 45 minutes of critical care time in obtaining history, performing a physical exam, bedside monitoring of interventions, collecting and interpreting tests and discussion with consultants but not including time spent performing procedures. Depart Departure Latest Vital Signs Vital Signs Date Time Temp Pulse Resp B/P (MAP) Pulse Ox O2 Delivery O2 Flow Rate FiO2 04/29/17 10:25 135/84 (101) 04/29/17 10:24 58 04/29/17 10:09 94 04/29/17 09:20 4.0 04/29/17 09:14 14 Room Air Core Temperature (Celsius): 37.2 Impression: Primary Impression: ST elevation NM (STEMI) Condition: Condition Unchanged Disposition: XFER TO ACUTE CARE HOSPITAL Referrals: FEMI CUMMINGS DO (PCP) Problem Qualifiers Primary Impression: ST elevation NM (STEMI) Involved coronary artery: LAD coronary artery Qualified Codes: I21.02 - ST elevation (STEMI) myocardial infarction involving left anterior descending coronary artery JANNY MARSHALL MD Apr 29, 2017 09:14
[2017-04-29] MEDS ORDERED: diphenhydrAMINE 50 MG/ML VIAL ONE (09:33)
[2017-04-29 09:42] LABS: PLATELET COUNT, AUTOMATED 366 K/uL (150-450)
[2017-04-29] MEDS ORDERED: STEMI KIT(*) 1 EA ONE (09:44)
[2017-04-29] MEDS ORDERED: CLOPIDOGREL BISULFATE 75MG TAB PO ONE (09:55)
[2017-04-29] MEDS ORDERED: HEPARIN* SOD/D5W 25000 U/500ML 500 ML IV ONE (09:55)
[2017-04-29] MEDS ORDERED: HEPARIN (PORC) 5000 UN/ML VIAL IVP ONE (09:55)
--- NOTE | 2017-04-29 10:09 | RADIOLOGY IMAGING REPORT ---
FACILITY: [facility] PATIENT NAME: Chey Calderón : 1940 MR: [id number] V: [id number] EXAM DATE: ORDERING PHYSICIAN: JANNY MARSHALL TECHNOLOGIST: Location: [facility] - [place] Patient: Chey Calderón : 1940 Visit/Account:[id number] Date of Sevice: 04/29/2017 Exam type: CHEST SINGLE AP History: Chest Pain Comparison: March 28, 2017. Findings: Cardiac silhouette is mildly enlarged but unchanged. Mildly prominent initial markings have remained stable. There is linear stranding at lung bases consistent with scarring versus atelectasis. No ev idence of a pneumothorax or pneumomediastinum. IMPRESSION: 1. No significant interval change when compared to March 28, 2017. There is chronic linear scarring versus atelectasis in the lung bases and mild interstitial prominenc e that has remained stable Report Dictated By: Ninfa Moya MD at 04/29/2017 10:05 AM Report E-Signed By: Ninfa Moya MD at 04/29/2017 10:06 AM WSN:ELVIN
[2017-04-29 10:25] VITALS: BP 135/84
--- NOTE | 2017-04-29 12:42 | EKG ---
FACILITY: [facility] PATIENT NAME: TAYLOR WASHINGTON : [id number] MR: [id number] V: [id number] EXAM DATE: ORDERING PHYSICIAN: JANNY MARSHALL TECHNOLOGIST: ABENA Cobb Reason : CHEST PPIAN Blood Pressure : / mmHG Vent. Rate : 059 BPM Atrial Rate : 059 BPM P-R Int : 150 ms QRS Dur : 146 ms QT Int : 484 ms P-R-T Axes : 068 -54 030 degrees QTc Int : 479 ms Sinus bradycardia Left axis deviation Left bundle branch block with consistent ST-T changes Abnormal ECG When compared with ECG of 28-MAR-2017 16:12, QRS axis shifted left Confirmed by DARRYL RAMIRES ([id number] on 04/29/2017 5:24:57 PM Referred By: JOANNA Confirmed By:DARRYL RAMIRES
[2017-04-29] MEDS ORDERED: ONDANSETRON 4 MG/2 ML VIAL IVP ONE (19:25)
[2017-04-29] MEDS ORDERED: TENECTEPLASE 50 MG KIT IVP ONE (19:25)
[2017-04-29] MEDS ORDERED: NS(*) 0.9% 1000 ML BAG 1,000 ML IV ONE (19:30)
[2017-04-29] MEDS ORDERED: EMS NS 0.9%(*) 1000 ML BAG 1,000 ML IV ONE (19:30)
[2017-04-29] MEDS ORDERED: POTA25TA28 PO (19:53)
[2017-04-29] MEDS ORDERED: VILA10TA PO (19:53)
[2017-04-29] MEDS ORDERED: LOSA-54 PO (19:53)
[2017-04-29] MEDS ORDERED: ATOR10TA24 PO (19:53)
[2017-04-29] MEDS ORDERED: ASPI81TA94 PO (19:53)
[2017-04-29] MEDS ORDERED: NITR0.4T3 SL (19:53)
[2017-04-29] MEDS ORDERED: APIX2.5T PO (19:53)
== END 2017-04-29 10:45 ==
LOC: ER 09:17
DX: I21.02 ST elevation (STEMI) myocardial infarction involving left anterior descending coronary artery (principal)
CPT/HCPCS: 71045; 84484; 85025; 85379; 93005; 96361; 96374; 96375; 99285; 99291; J1200; J1644; J2405; J3101; J7030; 82040; 82247; 82310; 82374; 82435; 82565; 82947; 84075; 84132; 84155; 84295; 84450; 84460; 84520

== ENCOUNTER → 2017-04-29 | Outpatient (REF) ==
[2017-02-22 12:35] VITALS: BMI 18.3
[~2017-04-29] MED LIST changes: +APIX2.5T PO; +ASPI81TA94 PO; +ATOR10TA24 PO; +LOSA-54 PO; +NITR0.4T3 SL; +POTA25TA28 PO; -REGADENOSON 0.4 MG/5 ML SYR ONE; +VILA10TA PO
== END ==
LOC: AMB 10:11
PROVIDERS: ATTEND Nurse Practitioner
DX: Z02.9 Encounter for administrative examinations, unspecified (principal)

== ENCOUNTER → 2017-04-29 | Outpatient (CLI) | payer MEDICARE, BC ==
[2017-02-22 12:35] VITALS: BMI 18.3
== END ==
LOC: AMB 08:55
PROVIDERS: ATTEND Nurse Practitioner
DX: R06.02 Shortness of breath (principal); M79.601 Pain in right arm; R07.9 Chest pain, unspecified; R68.84 Jaw pain; R61 Generalized hyperhidrosis
CPT/HCPCS: A0425; A0427